=== PATIENT | female | born 1945 | race Caucasian/White ===

== ENCOUNTER 2023-06-13 08:34 | Emergency (ER) | payer MEDICARE, SELFPAY ==
[2023-06-13 08:38] VITALS: BP 174/83
--- NOTE | 2023-06-13 09:30 | ED.GENMED ---
History of Present Illness
General
Chief Complaint: Abdominal Symptoms
Source: patient and records
Exam Limitations: none
Time Seen by Provider: 06/13/23 09:04
Travel History
Have you had any contact with someone who has COVID-19?: No
Do you have any symptoms of coronavirus? Fever > 100 degrees, chills, cough, shortness of breath, sore throat, loss of taste or smell, muscle aches, or headache?: No
History of Present Illness
History of Present Illness:
Patient is a very pleasant 78-year-old female send diverticulitis status postresection at [facility] for sigmoid postoperatively had some pains and anemia ultimately diagnosed with multiple myeloma she has been on Revlimid and
infusions the [facility] about a month ago had a GI illness, diagnosed with enteritis treated with Bentyl past few days has had some abdominal cramping and loose stool concern for diverticulitis no recent antibiotic use, also just
finished some antivirals for genital herpes which is a new issue for her
Past History
Past History
ED Past Medical History: Other (Diverticulitis, IBS) and Other (Multiple myeloma)
ED Past Surgical History: Bowel resection (Sigmoid resection), Orthopedic and Other
Patient has exhibited threatening behavior?: No
Social History
Tobacco: Non-smoker
Alcohol: Occasional
Drug: None
Personal:
Living: alone
Employment: Retired
Family History
Family History: Other (Mother with coronary artery disease sister with breast cancer)
Review of Systems
Review of Systems
All Other Systems: Not applicable
Constitutional: Denies fever, fatigue or chills
Respiratory: Reports no symptoms
Cardiac: Reports no symptoms
ABD/GI: Reports abdominal pain and diarrhea
Musculoskeletal: Reports no symptoms
Skin: Reports no symptoms
Neurological: Reports no symptoms
Hematologic/Lymphatic: Reports no symptoms
Psychiatric: Reports no symptoms
Phy Exam
Physical Exam
Physical Exam:
Physical Exam
General: no apparent distress, not acutely ill
Neck: No jaundice
Heart: s1/s2 regular rate and rhythm, no murmur. equal radial pulses.
Lungs: no acute respiratory distress. clear bilaterally
Abdomen: Soft mild diffuse tenderness distended
Neuro: alert and oriented. no focal neurological deficits
Skin: no rash
Psychiatric: well kept. interactive and cooperative
Extremities: no edema.
Course
Orders/Labs/Results
Orders:
Orders
06/13/23 09:28
CT Abd/pel W Iv And Oral Contr Urgent
Comment:
Reason For Exam: pain diraha
Iohexol [Omnipaque] See Protocol PO NOW STA
06/13/23 09:38
Complete Blood Count/With Diff Urgent
Comprehensive Metabolic Panel Urgent
Lipase Urgent
06/13/23 12:09
CDIFF [C difficile Antigen & Toxins] Urgent
MARLENY Source: Feces/Stool
Specimen Description:
Date Specimen was Collected: 06/13/23
Time Specimen was Collected: 12:03
Stool Culture Urgent
MARLENY Source: Feces/Stool
Specimen Description:
Date Specimen was Collected: 06/13/23
Time Specimen was Collected: 12:03
Abnormal Lab Results
06/13/23
09:38
WBC 4.5 L 10^3/uL
(4.8-10.8)
RBC 3.65 L 10^6/uL
(4.20-5.40)
Hct 35.8 L %
(37.0-47.0)
MCH 34.0 H pg
(27.0-31.0)
RDW 15.0 H %
(11.5-14.5)
Monocytes % 9.7 H %
(1.7-9.3)
AST 37 H U/L
(14-36)
06/13/23 09:38
06/13/23 09:38
Vital Signs
Initial and Last Documented VS:
Initial Vital Signs
Temp Pulse Resp BP Pulse Ox
98.1 F 57 16 174/83 99
06/13/23 08:38 06/13/23 08:38 06/13/23 08:38 06/13/23 08:38 06/13/23 08:38
Last Documented Vital Signs
Temp Pulse Resp BP Pulse Ox
98.1 F 57 16 174/83 99
06/13/23 08:38 06/13/23 08:38 06/13/23 08:38 06/13/23 08:38 06/13/23 08:38
MDM/Problems Addressed
Differential Diagnosis Includes:
Colitis diverticulitis infectious diarrhea enteritis medication effect
MDM/Problems Addressed:
Cramping loose stool
Chronic conditions affecting care:
Diverticulitis myeloma
Acute Exacerbation and/or Progression of Chronic Illness:
Diverticulitis myeloma
*Radiology
Radiology exam reviewed: preliminary read by ED provider
*Pulse Oximetry
Patient hypoxic: no
*Critical Care Note
Total Time (30-74mins, 75-104mins- exclusive of procedures): Not Applicable
Data Reviewed
Review of Other/Old Records Reveals: Labs and Discharge Summary
Source: patient, records and previous radiology exam
Update Note
Update Note:
Update 1:40 PM labs CAT scan unremarkable unable to stool sample
ED Attending Note
-
Portions of this chart may have been created with voice recognition software.� Occasional wrong word or��sound alike� substitutions may have occurred due to the inherent limitations of voice recognition software.
Discharge Plan
Departure
Patient Disposition: Home (Routine Discharge)
Date of Disposition: 06/13/23
Time of Disposition: 13:44
Patient with high blood pressure during this ER visit?: No
Condition: Good
Discharge Problem:
Abdominal pain
Instructions: Diarrhea in adolescents and adults, Abdominal Pain
Prescriptions:
New
dicyclomine 20 mg tablet
20 mg PO QID PRN (Reason: abdominal pain) Qty: 20 2RF
No Action
Refresh Classic (PF) 10 DROPS dropperette
1 drops BOTH EYES DAILYPRN PRN (Reason: dry eyes)
famotidine 40 MG tablet
40 mg PO DAILY
lenalidomide [Revlimid] 15 MG capsule
15 mg PO DAILY
Patient Comments:
09/09/21- Takes 15mg daily for 2 weeks, and then off for 1 week
oxycodone 10 MG tablet
10 mg PO BIDPRN PRN (Reason: severe pain)
Patient Comments:
09/09/21: last filled 07/16/21 #60 for 30 days
milk thistle 500 MG capsule
500 mg PO DAILY
aspirin 81 MG tablet,delayed release (DR/EC)
81 mg PO DAILY
acetaminophen [Tylenol Extra Strength] 500 MG tablet
1,000 mg PO BIDPRN PRN (Reason: mild pain)
calcium carbonate [Oyster Shell Calcium 500] 500 MG tablet
1,500 mg PO DAILY
ascorbic acid (vitamin C) [Vitamin C] 500 MG tablet
1,000 mg PO DAILY
gabapentin 300 MG capsule
400 mg PO HS
cranberry 1,000 MG capsule
1,000 mg PO DAILY
cholecalciferol (vitamin D3) 1,000 UNITS tablet
5,000 units PO DAILY
multivitamin with folic acid [Tab-A-Jacquie] 1 TABLET tablet
1 tab PO DAILY
[place] 3-6-9 1,200 MG capsule
1,200 mg PO DAILY
alprazolam 0.25 MG tablet
0.25 mg PO DAILYPRN PRN (Reason: anxiety)
Patient Comments:
09/09/21: last filled 06/19/21, 15 tabs for 15 days from [facility]
buprenorphine [Butrans] 15 MCG/HR patch weekly
1 patch topical Q7D
Patient Comments:
09/09/21-patient has patch on right arm for back pain
polyethylene glycol 3350 17 GRAMS powder in packet
17 grams PO DAILYPRN PRN (Reason: constipation)
hydralazine 25 mg tablet
12.5 mg PO TID Qty: 90 0RF
dicyclomine 10 mg capsule
10 - 20 mg PO TID PRN (Reason: abdominal pain) Qty: 20 0RF
Referrals:
Yojana Doty MD [Family Provider] - Next open appointment
Activity Restrictions/Additional Instructions:
Drink plenty of fluids, you can use Bentyl 3-4 times a day for abdominal cramping
Interventions
Interventions:
*Risk Screen - Suicide Last Done: 06/13/23 08:38
*General Assessment Last Done: 06/13/23 08:38
*Neglect/Abuse Screening Last Done: 06/13/23 08:38
[2023-06-13] MEDS: OMNIPAQUE 50 ML PO (09:55)
[2023-06-13 09:56] LABS: % Basophils 1.5 % (0-2); % Eosinophils 2.2 % (0-6); % Immature Granulocytes 0.2 % (0-0.5); % Lymphocytes 25.8 % (20.5-51.1); % Monocytes 9.7 % (1.7-9.3); % Neutrophils 60.6 % (42.2-75.2); Absolute Basophils 0.1 10^3/uL (0-0.2); Absolute Eosinophils 0.1 10^3/uL (0-0.7); Absolute Lymphocytes 1.2 10^3/uL (1.2-3.4); Absolute Monocytes 0.4 10^3/uL (0.1-0.6); Absolute Neutrophils 2.7 10^3/uL (1.4-6.5); Hematocrit 35.8 % (37.0-47.0); Hemoglobin 12.4 g/dL (12.0-16.0); Mean Corp Hgb Conc. 34.6 g/dL (33.0-37.0); Mean Corpuscular Volume 98.1 fL (81.0-99.0); Mean Platelet Volume 10.4 fL (7.4-10.4); Nucleated Red Blood Cells % 0 %; Platelet Count 277 10^3/uL (130-400); Red Blood Cell Count 3.65 10^6/uL (4.20-5.40); White Blood Cell Count 4.5 10^3/uL (4.8-10.8)
[2023-06-13 10:11] LABS: ALT (SGPT) 26 U/L (0-35); AST (SGOT) 37 U/L (14-36); Albumin 4.5 g/dl (3.5-5.0); Alkaline Phosphatase 85 U/L (38-126); Blood Urea Nitrogen 17 mg/dl (7-17); Calcium 9.7 mg/dl (8.4-10.2); Carbon Dioxide 30 mmol/L (22-30); Chloride 105 mmol/L (98-107); Glucose 79 mg/dl (70-99); Lipase 118 U/L (23-300); Potassium 4.1 mmol/L (3.5-5.1); Sodium 138 mmol/L (135-145); Total Bilirubin 0.9 mg/dl (0.2-1.3); Total Protein 7.6 g/dl (6.3-8.2); eGFR > 60.00
--- NOTE | 2023-06-13 11:24 | CON.GI ---
Addendum entered and electronically signed by Sharona Haque MD 06/13/23 12:02:
I saw and examined the patient.
The CUSHION WORKER's note was reviewed and I agree with the note.
Comment: This is a 78-year-old female who has a history of recurrent diverticulitis requiring sigmoidectomy in 2019 at [facility] with complicated postop course with ileus and bleeding and required prolonged hospitalization with TPN. She was subsequently
diagnosed with multiple myeloma had undergone treatment for this with Dr. Haddad and Dr. Gunn and she is been off the Revlimid since August 2022. She has been having chronic intermittent episodes of lower abdominal discomfort associated with
urgency to have a bowel movement on and off for the past couple of months. She was in the emergency room on the was diagnosed with probable enteritis and was also prescribed Bentyl she took it for a few days but has not recently been using it,
it did help her in the past. She takes MiraLAX as needed when she is constipated. Recently she has been taking Pepto-Bismol for the frequent stools. No rectal bleeding no fevers or chills. She also has a history of recurrent partial small bowel
obstructions in the past which resolved with conservative treatment and did not require repeat surgery. She had not really tolerated fiber in the past.
Assessment and plan symptoms of lower abdominal cramps with urgency and frequent stool most likely related to probable IBS and diverticular associated spasm there was no evidence of anastomotic stricture noted on colonoscopy in 2021 the colorectal
anastomosis seemed normal and random colon biopsies at that time were negative for microscopic colitis also. She is scheduled for repeat CT today if that is negative for bowel obstruction or acute diverticulitis she is okay to DC home with
symptomatic treatment with Bentyl and IBgard and low FODMAP diet and follow-up with Dr. Quiñones as outpatient.
Original Note:
Documented by User: Josey Bello PA-C 06/13/23 11:48
Consultation
-
Date/Time Consultation Requested: 06/13/23
Date/Time Consultation Performed: 06/13/23 1115
Performing Provider: Josey Benitez-C
Reason for Consultation: urgency, h/o partial bowel obstructions
Medical History
Chief Complaint / HPI
Chief Complaint: urgency, loose bowel movements
History of Present Illness:
Julia is a 78 year old female with a past medical history of partial bowel obstructions, recurrent complicated diverticulitis (s/p sigmoid colectomy 02/2020 at [facility]), multiple myeloma, chronic back pain who presents to the ER after calling the
GI office yesterday afternoon for abdominal cramping/urgency and loose stools for the past few days. No associated fever, chills, nausea or vomiting. No melena or hematochezia. She currently denies abdominal pain and states her symptoms do not feel
like when she had the prior obstructions. She is passing loose brown stools multiple times daily with urgency. She took Pepto-Bismol with some relief. She takes Miralax on an as needed basis, but generally states her bowel movements are regular. She
was in the ER 05/26/23 with similar symptoms (but at that time was vomiting and had low grade fever), had a CT scan which showed enteritis/ileus. She states these symptoms resolved on their own and she had a recent follow-up office visit with "Alfonso"Nuria on 06/10/23. Her last colonoscopy in 2021 showed no colonic diverticulosis, and s/p ileocolonic anastamosis. Colon biopsies were negative for microscopic colitis. ER labs showing no leukocytosis. CT abdomen/pelvis is still pending.
Past Medical History
Past Medical History: GERD and Other (multiple myeloma (previously on revlimid, off since 08/2022), diverticulitis s/p sigmoid colectomy 2019 at [facility], partial small bowel obstructions, chronic back pain)
Past Surgical History: Other (see above )
Social History
Tobacco: Non-Smoker
Alcohol: Occasional
Drug: None
Personal:
Living: Alone
Employment: Retired
Family History
Family History: Other (No family history of GI malignancies)
Allergies / Home Medications
Allergy/AdvReac Type Severity Reaction Status Date / Time
adhesive Allergy Bandaid - Verified 06/13/23 08:36
local
reaction
asparagus Allergy Asthma Verified 06/13/23 08:36
symptoms
benzoyl peroxide Allergy Puffs up, Verified 06/13/23 08:36
itchy, red
- topical
for acne
cat dander Allergy 'Very Verified 06/13/23 08:36
allergic'
cat pelt standardized Allergy Asthma Verified 06/13/23 08:36
allergenic ex
latex [Latex] Allergy Rash Verified 06/13/23 08:36
melon Allergy Honeydew - Verified 06/13/23 08:36
asthma
mold Allergy Shortness Verified 06/13/23 08:36
of Breath
piperacillin [From Zosyn] Allergy Developed Verified 06/13/23 08:36
Sensitivity
pollen extracts Allergy Asthma, Verified 06/13/23 08:36
gets sick
sulfamethoxazole Allergy Anaphylaxis Verified 06/13/23 08:36
[From Bactrim]
tazobactam [From Zosyn] Allergy Developed Verified 06/13/23 08:36
Sensitivity
trimethoprim [From Bactrim] Allergy Anaphylaxis Verified 06/13/23 08:36
prednisone AdvReac Worsened Verified 06/13/23 08:36
Lymes
Disease
symptoms
chemicals Allergy asthma Uncoded 06/13/23 08:36
Medication Instructions Recorded
polyvinyl alcohol-povidone (PF) 1 drops BOTH EYES DAILYPRN PRN dry 07/19/19
1.4 %-0.6 % eye drops in a eyes
dropperette (Refresh Classic (PF))
famotidine 40 mg tablet 40 mg PO DAILY Gastrointestinal 10/23/20
issue
lenalidomide 15 mg capsule 15 mg PO DAILY Cancer 10/23/20
(Revlimid)
oxycodone 10 mg tablet 10 mg PO BIDPRN PRN severe pain 10/23/20
acetaminophen 500 mg tablet 1,000 mg PO BIDPRN PRN mild pain 01/22/21
(Tylenol Extra Strength)
alprazolam 0.25 mg tablet 0.25 mg PO DAILYPRN PRN anxiety 01/22/21
ascorbic acid (vitamin C) 500 mg 1,000 mg PO DAILY Supplement 01/22/21
tablet (Vitamin C)
aspirin 81 mg tablet,delayed 81 mg PO DAILY Blood clot 01/22/21
release prevention/tx
calcium carbonate 500 mg calcium 1,500 mg PO DAILY Supplement 01/22/21
(1,250 mg) tablet (Oyster Shell
Calcium 500)
cholecalciferol (vitamin D3) 25 5,000 units PO DAILY Supplement 01/22/21
mcg (1,000 unit) tablet
cranberry 1,000 mg capsule 1,000 mg PO DAILY Supplement 01/22/21
fish, borage, flaxseed oils-omega 1,200 mg PO DAILY Supplement 01/22/21
3,6,9 comb no.1 1,200 mg capsule
([place] 3-6-9)
gabapentin 300 mg capsule 400 mg PO HS Pain 01/22/21
milk thistle 500 mg capsule 500 mg PO DAILY Supplement 01/22/21
multivitamin with folic acid 400 1 tab PO DAILY Supplement 01/22/21
mcg tablet (Tab-A-Jacquie)
buprenorphine 15 mcg/hour weekly 1 patch topical Q7D 09/09/21
transdermal patch (Butrans)
polyethylene glycol 3350 17 gram 17 grams PO DAILYPRN PRN 09/09/21
oral powder packet constipation
hydralazine 25 mg tablet 12.5 mg PO TID #90 tabs 12/18/22
dicyclomine 10 mg capsule 10 - 20 mg PO TID PRN abdominal 05/26/23
pain #20 caps
Review of Systems
-
History Source: Patient
All other systems: A 12 pt ROS was Negative except as stated above in HPI
Vital Signs
Temp Pulse Resp BP Pulse Ox
98.1 F 57 16 174/83 99
06/13/23 08:38 06/13/23 08:38 06/13/23 08:38 06/13/23 08:38 06/13/23 08:38
Physical Exam
Exam
General: Well Developed, Well Nourished and No Apparent Distress
Respiratory: Clear
Cardiac: Regular Rhythm
GI: Soft, Non Distended, Normal Bowel Sounds and Tender (+mild tenderness LLQ)
Skin: Warm and Dry
Neuro: AO x 3
Psych: Calm
Results
WBC 4.5 10^3/uL (4.8-10.8) L 06/13/23 09:38
Hgb 12.4 g/dL (12.0-16.0) 06/13/23 09:38
Hct 35.8 % (37.0-47.0) L 06/13/23 09:38
MCV 98.1 fL (81.0-99.0) 06/13/23 09:38
Plt Count 277 10^3/uL (130-400) 06/13/23 09:38
Absolute Neuts (auto) 2.7 10^3/uL (1.4-6.5) 06/13/23 09:38
Sodium 138 mmol/L (135-145) 06/13/23 09:38
Potassium 4.1 mmol/L (3.5-5.1) 06/13/23 09:38
Chloride 105 mmol/L (98-107) 06/13/23 09:38
Carbon Dioxide 30 mmol/L (22-30) 06/13/23 09:38
BUN 17 mg/dl (7-17) 06/13/23 09:38
Creatinine 0.8 mg/dL (0.6-1.0) 06/13/23 09:38
Calcium 9.7 mg/dl (8.4-10.2) 06/13/23 09:38
Total Bilirubin 0.9 mg/dl (0.2-1.3) 06/13/23 09:38
AST 37 U/L (14-36) H 06/13/23 09:38
ALT 26 U/L (0-35) 06/13/23 09:38
Alkaline Phosphatase 85 U/L (38-126) 06/13/23 09:38
Lipase 118 U/L (23-300) 06/13/23 09:38
Diagnostic Image Results:
CT abdomen/pelvis pending
Prior GI Procedures:
EGD:
Colonoscopy:
06/04/2021, Dr. Quiñones
�� � No evidence of colitis. Anastomosis seen at 15cm. No diverticula or
�� � polyps seen. Fair prep. Biopsies for histology were taken with a cold
�� � forceps from the entire colon for evaluation of microscopic colitis.
�� � � � � � � � � � � � � � � � � � � � � � � � � � � � � � � � � � � � � � �
Impression:� � � � � � - No evidence of colitis or polyps.
�� � � � � � � � � � � - Anastomosis at 15 cm.
�� � � � � � � � � � � - Preparation of the colon was fair with areas of good.
Assessment / Plan
-
Julia is a 78 year old female with a past medical history of partial bowel obstructions, recurrent complicated diverticulitis (s/p sigmoid colectomy 02/2020 at [facility]), multiple myeloma, chronic back pain who presents to the ER after calling the
GI office yesterday afternoon for abdominal cramping/urgency and loose stools for the past few days. No associated fever, chills, nausea or vomiting. No melena or hematochezia. She currently denies abdominal pain and states her symptoms do not feel
like when she had the prior obstructions. She is passing loose brown stools multiple times daily with urgency. She took Pepto-Bismol with some relief. She takes Miralax on an as needed basis, but generally states her bowel movements are regular. She
was in the ER 05/26/23 with similar symptoms (but at that time was vomiting and had low grade fever), had a CT scan which showed enteritis/ileus. She states these symptoms resolved on their own and she had a recent follow-up office visit with "Alfonso"Nuria on 06/10/23. Her last colonoscopy in 2021 showed no colonic diverticulosis, and s/p ileocolonic anastamosis. Colon biopsies were negative for microscopic colitis. ER labs showing no leukocytosis. CT abdomen/pelvis is still pending.
IMPRESSION / PLAN:
Abdominal Cramping/Urgency with loose bowel movements, likely IBS
-h/o recurrent diverticulitis s/p sigmoid colectomy in 2019
-h/o partial small bowel obstructions
-await CT results
-clinically pt does not present as an obstruction and suspect her symptoms are related to underlying irritable bowel syndrome
-if CT neg, would recommend dicyclomine and/or IB Daniel as needed
-outpatient GI followup with Dr. Quiñones
-
-
Thank you for consultation and allowing me to participate in the patient's care. Please call the front end software engineer GI physician during the after hours with any questions or concerns.

Documented by User: Sharona Haque MD 06/13/23 11:55
Medical History
Chief Complaint / HPI
History of Present Illness:
Julia is a 78 year old female with a past medical history of partial bowel obstructions, recurrent complicated diverticulitis (s/p sigmoid colectomy 02/2020 at [facility]), multiple myeloma, chronic back pain who presents to the ER after calling the
GI office yesterday afternoon for abdominal cramping/urgency and loose stools for the past few days. No associated fever, chills, nausea or vomiting. No melena or hematochezia. She currently denies abdominal pain and states her symptoms do not feel
like when she had the prior obstructions. She is passing loose brown stools multiple times daily with urgency. She took Pepto-Bismol with some relief. She takes Miralax on an as needed basis, but generally states her bowel movements are regular. She
was in the ER 05/26/23 with similar symptoms (but at that time was vomiting and had low grade fever), had a CT scan which showed enteritis/ileus. She states these symptoms resolved on their own and she had a recent follow-up office visit with Dr. Nuria (~) on 06/10/23. Her last colonoscopy in 2021 showed no colonic diverticulosis, and s/p colorectal anastamosis. Colon biopsies were negative for microscopic colitis. ER labs showing no leukocytosis. CT abdomen/pelvis is still pending.
Assessment / Plan
-
Julia is a 78 year old female with a past medical history of partial bowel obstructions, recurrent complicated diverticulitis (s/p sigmoid colectomy 02/2020 at [facility]), multiple myeloma, chronic back pain who presents to the ER after calling the
GI office yesterday afternoon for abdominal cramping/urgency and loose stools for the past few days. No associated fever, chills, nausea or vomiting. No melena or hematochezia. She currently denies abdominal pain and states her symptoms do not feel
like when she had the prior obstructions. She is passing loose brown stools multiple times daily with urgency. She took Pepto-Bismol with some relief. She takes Miralax on an as needed basis, but generally states her bowel movements are regular. She
was in the ER 05/26/23 with similar symptoms (but at that time was vomiting and had low grade fever), had a CT scan which showed enteritis/ileus. She states these symptoms resolved on their own and she had a recent follow-up office visit with Dr. Nuria (~) on 06/10/23. Her last colonoscopy in 2021 showed no colonic diverticulosis, and s/p colorectal anastamosis. Colon biopsies were negative for microscopic colitis. ER labs showing no leukocytosis. CT abdomen/pelvis is still pending.
IMPRESSION / PLAN:
Abdominal Cramping/Urgency with loose bowel movements, likely IBS
-h/o recurrent diverticulitis s/p sigmoid colectomy in 2019
-h/o partial small bowel obstructions
-await CT results
-clinically pt does not present as an obstruction and suspect her symptoms are related to underlying irritable bowel syndrome
-if CT neg, would recommend dicyclomine and/or IB Daniel as needed
-outpatient GI followup with Dr. Quiñones
== END 2023-06-13 14:10 | disposition home or self-care (01) ==
LOC: EMR 08:34
PROVIDERS: EMERGENCY PHYSICIAN Emergency Medicine; FAMILY PHYSICIAN Family Medicine
DX: R10.9 Unspecified abdominal pain (principal); G89.29 Other chronic pain; K21.9 Gastro-esophageal reflux disease without esophagitis; Z80.3 Family history of malignant neoplasm of breast; Z82.49 Family history of ischemic heart disease and other diseases of the circulatory system; Z83.79 Family history of other diseases of the digestive system; Z90.49 Acquired absence of other specified parts of digestive tract
CPT/HCPCS: 99284; 74177; 80053; 83690; 85025; 87045; 87046; 87324; 87427; 87449; Q9967

== ENCOUNTER → 2023-06-18 12:58 | Outpatient (REF) | payer MEDICARE, SELFPAY ==
[2023-06-18 12:17] LABS: % Basophils 1.4 % (0-2); % Eosinophils 1.9 % (0-6); % Lymphocytes 32.5 % (20.5-51.1); % Monocytes 10.8 % (1.7-9.3); % Neutrophils 53.4 % (42.2-75.2); Absolute Basophils 0.1 10^3/uL (0-0.2); Absolute Eosinophils 0.1 10^3/uL (0-0.7); Absolute Lymphocytes 1.4 10^3/uL (1.2-3.4); Absolute Monocytes 0.5 10^3/uL (0.1-0.6); Absolute Neutrophils 2.3 10^3/uL (1.4-6.5); Hematocrit 38.8 % (37.0-47.0); Mean Corp Hgb Conc. 33.5 g/dL (33.0-37.0); Mean Corpuscular Hgb 33.6 pg (27.0-31.0); Mean Corpuscular Volume 100.3 fL (81.0-99.0); Mean Platelet Volume 10.4 fL (7.4-10.4); Platelet Count 255 10^3/uL (130-400); Red Blood Cell Count 3.87 10^6/uL (4.20-5.40); Red Cell Dist. Width 14.6 % (11.5-14.5); White Blood Cell Count 4.2 10^3/uL (4.8-10.8)
[2023-06-18 13:16] LABS: INR 0.97; PT 12.8 Sec (11.4-14.6)
[2023-06-18 13:33] LABS: ALT (SGPT) 23 U/L (0-35); AST (SGOT) 33 U/L (14-36); Albumin 4.5 g/dl (3.5-5.0); Alkaline Phosphatase 98 U/L (38-126); Blood Urea Nitrogen 14 mg/dl (7-17); Calcium 10.1 mg/dl (8.4-10.2); Carbon Dioxide 31 mmol/L (22-30); Chloride 100 mmol/L (98-107); Glucose 95 mg/dl (70-99); Sodium 136 mmol/L (135-145); Total Bilirubin 0.9 mg/dl (0.2-1.3); Total Protein 7.5 g/dl (6.3-8.2); eGFR > 60.00
[2023-06-18 13:38] LABS: Potassium 4.2 mmol/L (3.5-5.1)
[2023-06-21 09:23] LABS: Beta-2-Microglobulin 1.7 mg/L (<=3.0)
[2023-06-22 23:41] LABS: Albumin 4.31 g/dL (3.75-5.01); Alpha 1 Globulin 0.26 g/dL (0.19-0.46); Alpha 2 Globulin 0.74 g/dL (0.48-1.05); Free Kappa Light Chains,Quant 11.67 mg/L (3.30-19.40); Free Lambda Light Chains,Quant 7.04 mg/L (5.71-26.30); IgA 166 mg/dL (68-408); IgG 1194 mg/dL (768-1632); IgM 116 mg/dL (35-263); Immunofixation Electrophoresis IFE Done; Kappa/Lambda Fr Light Ratio 1.66 (0.26-1.65); Total Protein-Electrophoresis 7.3 g/dL (6.3-8.2)
== END ==
LOC: OIDL 12:58
PROVIDERS: ATTENDING PHYSICIAN Internal Medicine Hematology & Oncology
DX: C90.00 Multiple myeloma not having achieved remission (principal); R58 Hemorrhage, not elsewhere classified
CPT/HCPCS: 80053; 82232; 82784; 83521; 84155; 84165; 85025; 85610; 86334

== ENCOUNTER → 2023-07-16 08:52 | Outpatient (REF) | payer MEDICARE, SELFPAY ==
[2023-07-16 09:12] LABS: % Basophils 1.6 % (0-2); % Eosinophils 4.2 % (0-6); % Lymphocytes 43.9 % (20.5-51.1); % Monocytes 9.9 % (1.7-9.3); % Neutrophils 40.4 % (42.2-75.2); Absolute Basophils 0.1 10^3/uL (0-0.2); Absolute Eosinophils 0.2 10^3/uL (0-0.7); Absolute Lymphocytes 1.9 10^3/uL (1.2-3.4); Absolute Monocytes 0.4 10^3/uL (0.1-0.6); Absolute Neutrophils 1.7 10^3/uL (1.4-6.5); Hematocrit 42.5 % (37.0-47.0); Hemoglobin 14.3 g/dL (12.0-16.0); Mean Corp Hgb Conc. 33.6 g/dL (33.0-37.0); Mean Corpuscular Hgb 33.7 pg (27.0-31.0); Mean Corpuscular Volume 100.2 fL (81.0-99.0); Mean Platelet Volume 10.1 fL (7.4-10.4); Platelet Count 268 10^3/uL (130-400); Red Blood Cell Count 4.24 10^6/uL (4.20-5.40); Red Cell Dist. Width 13.7 % (11.5-14.5); White Blood Cell Count 4.3 10^3/uL (4.8-10.8)
[2023-07-16 10:47] LABS: INR 0.94; PT 12.6 Sec (11.4-14.6)
[2023-07-16 10:48] LABS: APTT 26.1 Sec (23.4-35.0)
[2023-07-16 10:51] LABS: ALT (SGPT) 25 U/L (0-35); AST (SGOT) 30 U/L (14-36); Albumin 4.8 g/dl (3.5-5.0); Alkaline Phosphatase 105 U/L (38-126); Blood Urea Nitrogen 19 mg/dl (7-17); Calcium 9.6 mg/dl (8.4-10.2); Carbon Dioxide 25 mmol/L (22-30); Chloride 105 mmol/L (98-107); Glucose 94 mg/dl (70-99); Potassium 4.1 mmol/L (3.5-5.1); Sodium 137 mmol/L (135-145); Total Bilirubin 0.8 mg/dl (0.2-1.3); Total Protein 7.6 g/dl (6.3-8.2); eGFR > 60.00
[2023-07-18 03:08] LABS: Beta-2-Microglobulin 1.8 mg/L (<=3.0)
[2023-07-20 05:28] LABS: Albumin 4.53 g/dL (3.75-5.01); Alpha 1 Globulin 0.26 g/dL (0.19-0.46); Alpha 2 Globulin 0.72 g/dL (0.48-1.05); Free Kappa Light Chains,Quant 11.42 mg/L (3.30-19.40); Free Lambda Light Chains,Quant 7.35 mg/L (5.71-26.30); IgA 160 mg/dL (68-408); IgG 964 mg/dL (768-1632); IgM 111 mg/dL (35-263); Immunofixation Electrophoresis IFE Done; Kappa/Lambda Fr Light Ratio 1.55 (0.26-1.65); Total Protein-Electrophoresis 7.3 g/dL (6.3-8.2)
== END ==
LOC: OIDL 08:52
PROVIDERS: ATTENDING PHYSICIAN Internal Medicine Hematology & Oncology
DX: C90.00 Multiple myeloma not having achieved remission (principal); Z86.2 Personal history of diseases of the blood and blood-forming organs and certain disorders involving the immune mechanism
CPT/HCPCS: 36415; 80053; 82232; 82784; 83521; 84155; 84165; 85025; 85610; 85730; 86334

== ENCOUNTER 2023-08-03 04:56 | Emergency (ER) | payer MEDICARE, SELFPAY ==
[2023-08-03] VITALS (9 sets, daily range): BP systolic 113–155; BP diastolic 58–92; BMI 23.9
[2023-08-03] MEDS: TORADOL 15 MG IM (05:33)
[2023-08-03 05:35] LABS: % Basophils 0.5 % (0-2); % Eosinophils 0.5 % (0-6); % Immature Granulocytes 0.4 % (0-0.5); % Lymphocytes 8.4 % (20.5-51.1); % Monocytes 7.1 % (1.7-9.3); % Neutrophils 83.1 % (42.2-75.2); Absolute Basophils 0.1 10^3/uL (0-0.2); Absolute Eosinophils 0.1 10^3/uL (0-0.7); Absolute Immature Granulocytes 0.1 10^3/uL (0-0.05); Absolute Lymphocytes 1.1 10^3/uL (1.2-3.4); Absolute Monocytes 0.9 10^3/uL (0.1-0.6); Absolute Neutrophils 10.7 10^3/uL (1.4-6.5); Hematocrit 41.2 % (37.0-47.0); Hemoglobin 14.5 g/dL (12.0-16.0); Mean Corp Hgb Conc. 35.2 g/dL (33.0-37.0); Mean Corpuscular Hgb 32.9 pg (27.0-31.0); Mean Corpuscular Volume 93.4 fL (81.0-99.0); Mean Platelet Volume 10.4 fL (7.4-10.4); Nucleated Red Blood Cells % 0 %; Platelet Count 310 10^3/uL (130-400); Red Blood Cell Count 4.41 10^6/uL (4.20-5.40); Red Cell Dist. Width 13.2 % (11.5-14.5); White Blood Cell Count 12.9 10^3/uL (4.8-10.8)
[2023-08-03 05:53] LABS: ALT (SGPT) 24 U/L (0-35); AST (SGOT) 43 U/L (14-36); Albumin 4.9 g/dl (3.5-5.0); Alkaline Phosphatase 88 U/L (38-126); Blood Urea Nitrogen 19 mg/dl (7-17); Calcium 10.6 mg/dl (8.4-10.2); Carbon Dioxide 26 mmol/L (22-30); Chloride 104 mmol/L (98-107); Estimated Creatinine Clearance 48 ml/min; Glucose 120 mg/dl (70-99); Lipase 121 U/L (23-300); Potassium 4.8 mmol/L (3.5-5.1); Sodium 138 mmol/L (135-145); Total Bilirubin 0.9 mg/dl (0.2-1.3); Total Protein 8.3 g/dl (6.3-8.2); eGFR > 60.00
[2023-08-03 06:00] LABS: Troponin I < 0.012 ng/ml
[2023-08-03] MEDS: DILAUDID 0.5 MG IV (06:10)
--- NOTE | 2023-08-03 06:11 | ED.GENMED ---
History of Present Illness
General
Chief Complaint: Abdominal Pain
Source: patient
Exam Limitations: none
Time Seen by Provider: 08/03/23 05:59
Nursing documentation reviewed up to this point in time: agreed with
Travel History
Have you had any contact with someone who has COVID-19?: No
Do you have any symptoms of coronavirus? Fever > 100 degrees, chills, cough, shortness of breath, sore throat, loss of taste or smell, muscle aches, or headache?: No
History of Present Illness
History of Present Illness:
Patient presents to ED secondary to sudden onset of upper abdominal pain around 10:30 PM last night. Abdominal pain described as sharp, radiating to the sides, without any alleviating or exacerbating factors. Patient has had normal bowel movements
since onset of pain, without improvement symptoms. Denies diarrhea. Denies fever or chills. Denies trauma. Denies difficulty with urination. Patient has has history of bowel obstruction, but states that her symptoms are different. Denies
recent illness. Denies recent travel. Denies sick contact. Denies recent change in medications or diet.
Past History
Past History
ED Past Medical History: Other (Diverticulitis, IBS) and Other (Multiple myeloma)
ED Past Surgical History: Bowel resection (Sigmoid resection), Orthopedic and Other
Patient has exhibited threatening behavior?: No
Social History
Tobacco: Non-smoker
Alcohol: Occasional
Drug: None
Personal:
Living: alone
Employment: Retired
Family History
Family History: Other (Mother with coronary artery disease sister with breast cancer)
Review of Systems
Review of Systems
Allergies reviewed?: Yes
All Other Systems: ROS reviewed and negative except as documented in HPI and ROS
Constitutional: Reports no symptoms; Denies fever
EENT: Reports no symptoms
Respiratory: Reports no symptoms
ABD/GI: Reports abdominal pain, nausea and vomiting; Denies diarrhea
: Reports no symptoms
Musculoskeletal: Reports no symptoms
Skin: Reports no symptoms
Neurological: Reports no symptoms
Phy Exam
Physical Exam
Physical Exam:
Physical Exam
General: mild painful distress, not acutely ill. afebrile
Head: nc/at. eomi
Neck: supple. normal range of motion.
Heart: s1/s2 regular rate and rhythm, no murmur. equal radial pulses.
Lungs: no acute respiratory distress. clear bilaterally
Abdomen: normal bowel sounds. mild epigastric/RUQ tenderness to palpation.
Neuro: alert and oriented. no focal neurological deficits
Skin: no rash
Psychiatric: well kept. interactive and cooperative
Extremities: no edema. no calf tenderness. equal b/l femoral pulses.
Course
Orders/Labs/Results
Orders:
Orders
08/03/23 05:18
Electrocardiogram (*1) Urgent
Reason for Study: Chest Pain
08/03/23 05:19
EKG- Treatment ONCE
08/03/23 05:27
Complete Blood Count/With Diff Urgent
Comprehensive Metabolic Panel Urgent
Lipase Urgent
Troponin I Urgent
08/03/23 05:30
Ketorolac [Toradol] 15 mg .ROUTE .STK-MED ONE
Ondansetron Injectable [Zofran] 4 mg .ROUTE .STK-MED ONE
08/03/23 05:32
Ketorolac [Toradol] 15 mg IM NOW STA
08/03/23 06:08
HYDROmorphone [Dilaudid] 0.5 mg IV NOW STA
US Abdomen Complete/Upper Urgent
Comment:
Reason For Exam: RUQ/epigastric pain
08/03/23 06:09
Ondansetron Injectable [Zofran] 4 mg .ROUTE .STK-MED ONE
08/03/23 06:10
0.9% Sodium Chloride 500 ml [Nss] 500 ml IV BOLUS
08/03/23 06:12
Ondansetron Injectable [Zofran] 4 mg IV NOW STA
08/03/23 07:42
CR Obstruct Series W/pa Chest Urgent
Comment:
Reason For Exam: abd pain w vomiting
08/03/23 08:37
CT Abd/pel W Iv And Oral Contr Urgent
Comment:
Reason For Exam: abdominal pain
Iohexol [Omnipaque] See Protocol PO NOW STA
Abnormal Lab Results
08/03/23
05:27
WBC 12.9 H 10^3/uL
(4.8-10.8)
MCH 32.9 H pg
(27.0-31.0)
Abs Immat Gran (auto) 0.1 H 10^3/uL
(0-0.05)
Absolute Neuts (auto) 10.7 H 10^3/uL
(1.4-6.5)
Absolute Lymphs (auto) 1.1 L 10^3/uL
(1.2-3.4)
Absolute Monos (auto) 0.9 H 10^3/uL
(0.1-0.6)
Neutrophils % 83.1 H %
(42.2-75.2)
Lymphocytes % 8.4 L %
(20.5-51.1)
BUN 19 H mg/dl
(7-17)
Glucose 120 H mg/dl
(70-99)
Calcium 10.6 H mg/dl
(8.4-10.2)
AST 43 H U/L
(14-36)
Total Protein 8.3 H g/dl
(6.3-8.2)
08/03/23 05:27
08/03/23 05:27
Vital Signs
Initial and Last Documented VS:
Initial Vital Signs
Temp Pulse Resp BP Pulse Ox
97.3 F 74 24 150/84 100
08/03/23 04:57 08/03/23 04:57 08/03/23 04:57 08/03/23 04:57 08/03/23 04:57
Last Documented Vital Signs
Temp Pulse Resp BP Pulse Ox
98.5 F 86 20 135/71 99
08/03/23 12:30 08/03/23 12:30 08/03/23 12:30 08/03/23 12:30 08/03/23 12:30
MDM/Problems Addressed
MDM/Problems Addressed:
Upon further questioning, patient states that she had similar episode in May 2023, which resolved spontaneously. Patient states that today symptoms are more intense.
Patient with an unremarkable workup in ED, including blood work and multiple imaging studies. Otherwise, patient remains afebrile, hemodynamically stable, without any acute distress. Patient with nonspecific abdominal complaint, with CT scan
suggestive of possible enteritis. As such, patient will be discharged home in stable condition, with recommendation to follow-up with her GI physician for an outpatient consultation. Advised to return to ED with worsening symptoms, i.e.
fever/worsening pain/vomiting.
*EKG
Interpreted by ED Provider?: Yes
EKG Intrepretation Date: 08/03/23
Heart Rate: 62
Rate: normal
Rhythm: sinus
[place]: normal axis
*Critical Care Note
Total Time (30-74mins, 75-104mins- exclusive of procedures): Not Applicable
ED Attending Note
-
Portions of this chart may have been created with voice recognition software.� Occasional wrong word or��sound alike� substitutions may have occurred due to the inherent limitations of voice recognition software.
Discharge Plan
Departure
Patient Disposition: Home (Routine Discharge)
Date of Disposition: 08/03/23
Time of Disposition: 12:17
Patient with high blood pressure during this ER visit?: Yes
Condition: Good
Discharge Problem:
Abdominal pain
Instructions: Abdominal Pain
Prescriptions:
No Action
Refresh Classic (PF) 10 DROPS dropperette
1 drops BOTH EYES DAILYPRN PRN (Reason: dry eyes)
famotidine 40 MG tablet
40 mg PO DAILY
milk thistle 500 MG capsule
500 mg PO DAILY
aspirin 81 MG tablet,delayed release (DR/EC)
81 mg PO DAILY
acetaminophen [Tylenol Extra Strength] 500 MG tablet
1,000 mg PO BIDPRN PRN (Reason: mild pain)
calcium carbonate [Oyster Shell Calcium 500] 500 MG tablet
1,500 mg PO DAILY
ascorbic acid (vitamin C) [Vitamin C] 500 MG tablet
1,000 mg PO DAILY
gabapentin 300 MG capsule
400 mg PO HS
cranberry 1,000 MG capsule
1,000 mg PO DAILY
cholecalciferol (vitamin D3) 1,000 UNITS tablet
5,000 units PO DAILY
multivitamin with folic acid [Tab-A-Jacquie] 1 TABLET tablet
1 tab PO DAILY
Valatie 3-6-9 1,200 MG capsule
1,200 mg PO DAILY
alprazolam 0.25 MG tablet
0.25 mg PO DAILYPRN PRN (Reason: anxiety)
Patient Comments:
09/09/21: last filled 06/19/21, 15 tabs for 15 days from [facility]
buprenorphine [Butrans] 15 MCG/HR patch weekly
1 patch topical Q7D
Patient Comments:
09/09/21-patient has patch on right arm for back pain
polyethylene glycol 3350 17 GRAMS powder in packet
17 grams PO DAILYPRN PRN (Reason: constipation)
hydralazine 25 mg tablet
12.5 mg PO TID Qty: 90 0RF
dicyclomine 10 mg capsule
10 - 20 mg PO TID PRN (Reason: abdominal pain) Qty: 20 0RF
dicyclomine 20 mg tablet
20 mg PO QID PRN (Reason: abdominal pain) Qty: 20 2RF
loperamide [Imodium A-D] 2 mg capsule
2 mg PO Q6H PRN (Reason: loose stool) Qty: 20 2RF
Referrals:
Chalino Garnica Jr., DO [Family Provider] -
Activity Restrictions/Additional Instructions:
As discussed, please follow-up with your primary care physician and/or GI physician for further evaluation and treatment.
Interventions
Interventions:
*Risk Screen - Suicide Last Done: 08/03/23 04:57
*General Assessment Last Done: 08/03/23 05:11
*Neglect/Abuse Screening Last Done: 08/03/23 04:57
ED- Fall Risk Assessment Last Done: 08/03/23 05:11
*ED COVID-19 Vaccine History Last Done: 08/03/23 05:11
*Nursing Disposition Last Done: 08/03/23 12:30
SO-[id number]-[id number] Assessment Last Done: 08/03/23 07:18
Discharge Date and Time
Discharge Date/Time: 08/03/23 12:30
[2023-08-03] MEDS: ZOFRAN 4 MG IV (06:12)
[2023-08-03] MEDS: NSS 500 IV (06:14)
[2023-08-03] MEDS: OMNIPAQUE 50 ML PO (08:51)
--- NOTE | 2023-08-03 09:49 | EDRN ---
the pt pressed the call mitchell and this RN entered the pts room, the pt stated to this RN, 'The doctor told me to let you guys know if i was having stomach pain with drinking the oral contrast and my stomach is cramping', this RN notified Dr. Sue and
this RN was instructed to have the pt stop drinking oral contrast, the pt has ingested 1.5 cups of oral contrast and this RN notified the provider, will continue to monitor the pt closely
== END 2023-08-03 12:30 | disposition home or self-care (01) ==
LOC: EMR 04:56
PROVIDERS: Emergency Medicine; EMERGENCY PHYSICIAN Emergency Medicine; FAMILY PHYSICIAN Family Medicine
DX: R10.10 Upper abdominal pain, unspecified (principal); R03.0 Elevated blood-pressure reading, without diagnosis of hypertension
CPT/HCPCS: 99285; 96374; 96375; 96361; 96372; 74022; 74177; 76700; 80053; 83690; 84484; 85025; 93005; Q9967

== ENCOUNTER → 2023-08-18 14:29 | Outpatient (REF) | payer MEDICARE, SELFPAY ==
[2023-08-18 14:46] LABS: % Basophils 0.8 % (0-2); % Eosinophils 1.7 % (0-6); % Lymphocytes 26.8 % (20.5-51.1); % Monocytes 7.8 % (1.7-9.3); % Neutrophils 62.9 % (42.2-75.2); Absolute Basophils 0.1 10^3/uL (0-0.2); Absolute Eosinophils 0.1 10^3/uL (0-0.7); Absolute Lymphocytes 1.7 10^3/uL (1.2-3.4); Absolute Monocytes 0.5 10^3/uL (0.1-0.6); Hematocrit 39.8 % (37.0-47.0); Hemoglobin 13.5 g/dL (12.0-16.0); Mean Corp Hgb Conc. 33.9 g/dL (33.0-37.0); Mean Corpuscular Hgb 32.4 pg (27.0-31.0); Mean Corpuscular Volume 95.4 fL (81.0-99.0); Mean Platelet Volume 9.9 fL (7.4-10.4); Platelet Count 306 10^3/uL (130-400); Red Blood Cell Count 4.17 10^6/uL (4.20-5.40); Red Cell Dist. Width 12.9 % (11.5-14.5); White Blood Cell Count 6.4 10^3/uL (4.8-10.8)
[2023-08-18 15:43] LABS: INR 0.96; PT 12.8 Sec (11.4-14.6)
[2023-08-18 15:44] LABS: ALT (SGPT) 29 U/L (0-35); AST (SGOT) 33 U/L (14-36); Albumin 4.8 g/dl (3.5-5.0); Alkaline Phosphatase 89 U/L (38-126); Blood Urea Nitrogen 12 mg/dl (7-17); Calcium 10.3 mg/dl (8.4-10.2); Carbon Dioxide 24 mmol/L (22-30); Chloride 105 mmol/L (98-107); Glucose 88 mg/dl (70-99); Potassium 4.2 mmol/L (3.5-5.1); Sodium 136 mmol/L (135-145); Total Bilirubin 0.8 mg/dl (0.2-1.3); Total Protein 7.8 g/dl (6.3-8.2); eGFR > 60.00
[2023-08-21 20:31] LABS: Beta-2-Glycoprotein I Ab. IgG <10 SGU (<=20); Beta-2-Glycoprotein I Ab. IgM <10 SMU (<=20)
[2023-08-21 23:19] LABS: Albumin 4.65 g/dL (3.75-5.01); Alpha 1 Globulin 0.28 g/dL (0.19-0.46); Alpha 2 Globulin 0.74 g/dL (0.48-1.05); Free Kappa Light Chains,Quant 10.76 mg/L (3.30-19.40); Free Lambda Light Chains,Quant 6.23 mg/L (5.71-26.30); IgA 154 mg/dL (68-408); IgG 1135 mg/dL (768-1632); IgM 120 mg/dL (35-263); Immunofixation Electrophoresis IFE Done; Kappa/Lambda Fr Light Ratio 1.73 (0.26-1.65); Total Protein-Electrophoresis 7.6 g/dL (6.3-8.2)
== END ==
LOC: OIDL 14:29
PROVIDERS: ATTENDING PHYSICIAN Internal Medicine Hematology & Oncology
DX: D80.1 Nonfamilial hypogammaglobulinemia (principal); C90.01 Multiple myeloma in remission; R79.9 Abnormal finding of blood chemistry, unspecified; Z86.2 Personal history of diseases of the blood and blood-forming organs and certain disorders involving the immune mechanism
CPT/HCPCS: 36415; 80053; 82784; 83521; 84155; 84165; 85025; 85610; 85730; 86146; 86334

== ENCOUNTER → 2023-09-09 06:13 | Day surgery (SDC) | payer MEDICARE, SELFPAY | LOC: GI 06:13 | PROVIDERS: ATTENDING PHYSICIAN Internal Medicine | DX: R10.84 Generalized abdominal pain (principal); K29.50 Unspecified chronic gastritis without bleeding; D17.5 Benign lipomatous neoplasm of intra-abdominal organs | CPT/HCPCS: 43239; 88305; 88342 ==

== ENCOUNTER → 2023-09-16 11:06 | Outpatient (REF) | payer MEDICARE, SELFPAY ==
[2023-09-16 11:19] LABS: % Basophils 1.1 % (0-2); % Immature Granulocytes 0.2 % (0-0.5); % Lymphocytes 30.1 % (20.5-51.1); % Monocytes 9.5 % (1.7-9.3); % Neutrophils 56.1 % (42.2-75.2); Absolute Basophils 0.1 10^3/uL (0-0.2); Absolute Eosinophils 0.1 10^3/uL (0-0.7); Absolute Lymphocytes 1.4 10^3/uL (1.2-3.4); Absolute Monocytes 0.5 10^3/uL (0.1-0.6); Absolute Neutrophils 2.7 10^3/uL (1.4-6.5); Hematocrit 38.4 % (37.0-47.0); Hemoglobin 13.1 g/dL (12.0-16.0); Mean Corp Hgb Conc. 34.1 g/dL (33.0-37.0); Mean Corpuscular Hgb 32.8 pg (27.0-31.0); Mean Corpuscular Volume 96.2 fL (81.0-99.0); Mean Platelet Volume 9.5 fL (7.4-10.4); Platelet Count 304 10^3/uL (130-400); Red Blood Cell Count 3.99 10^6/uL (4.20-5.40); Red Cell Dist. Width 13.3 % (11.5-14.5); White Blood Cell Count 4.7 10^3/uL (4.8-10.8)
[2023-09-16 12:20] LABS: INR 0.93; PT 12.4 Sec (11.4-14.6)
[2023-09-16 12:21] LABS: APTT 26.7 Sec (23.4-35.0)
[2023-09-16 12:33] LABS: ALT (SGPT) 33 U/L (0-35); AST (SGOT) 35 U/L (14-36); Albumin 4.6 g/dl (3.5-5.0); Alkaline Phosphatase 75 U/L (38-126); Blood Urea Nitrogen 13 mg/dl (7-17); Calcium 10.1 mg/dl (8.4-10.2); Carbon Dioxide 28 mmol/L (22-30); Chloride 103 mmol/L (98-107); Glucose 92 mg/dl (70-99); Potassium 4.4 mmol/L (3.5-5.1); Sodium 136 mmol/L (135-145); Total Bilirubin 0.5 mg/dl (0.2-1.3); Total Protein 7.3 g/dl (6.3-8.2); eGFR > 60.00
== END ==
LOC: OIDL 11:06
PROVIDERS: ATTENDING PHYSICIAN Internal Medicine Hematology & Oncology; PRIMARYCARE PHYSICIAN Family Medicine
DX: C90.00 Multiple myeloma not having achieved remission (principal); G89.3 Neoplasm related pain (acute) (chronic); D80.1 Nonfamilial hypogammaglobulinemia; R58 Hemorrhage, not elsewhere classified; Z86.2 Personal history of diseases of the blood and blood-forming organs and certain disorders involving the immune mechanism
CPT/HCPCS: 36415; 80053; 82784; 83521; 84155; 84165; 85025; 85610; 85730; 86334

== ENCOUNTER → 2023-10-29 11:39 | Outpatient (REF) | payer MEDICARE, SELFPAY | LOC: RAD 11:39 | PROVIDERS: ATTENDING PHYSICIAN Nurse Practitioner Adult Health | DX: R05.1 Acute cough (principal) | CPT/HCPCS: 71046 ==

== ENCOUNTER → 2023-11-19 08:42 | Outpatient (REF) | payer MEDICARE, SELFPAY ==
[2023-11-19 08:51] LABS: % Eosinophils 2.8 % (0-6); % Immature Granulocytes 0.3 % (0-0.5); % Lymphocytes 36.2 % (20.5-51.1); % Monocytes 8.8 % (1.7-9.3); % Neutrophils 50.9 % (42.2-75.2); Absolute Basophils 0.1 10^3/uL (0-0.2); Absolute Eosinophils 0.2 10^3/uL (0-0.7); Absolute Lymphocytes 2.2 10^3/uL (1.2-3.4); Absolute Monocytes 0.5 10^3/uL (0.1-0.6); Absolute Neutrophils 3.1 10^3/uL (1.4-6.5); Hematocrit 38.9 % (37.0-47.0); Hemoglobin 12.8 g/dL (12.0-16.0); Mean Corp Hgb Conc. 32.9 g/dL (33.0-37.0); Mean Corpuscular Hgb 32.6 pg (27.0-31.0); Mean Platelet Volume 9.3 fL (7.4-10.4); Platelet Count 350 10^3/uL (130-400); Red Blood Cell Count 3.93 10^6/uL (4.20-5.40); Red Cell Dist. Width 13.9 % (11.5-14.5)
[2023-11-19 11:11] LABS: ALT (SGPT) 40 U/L (0-35); AST (SGOT) 47 U/L (14-36); Albumin 4.2 g/dl (3.5-5.0); Alkaline Phosphatase 95 U/L (38-126); Blood Urea Nitrogen 20 mg/dl (7-17); Carbon Dioxide 25 mmol/L (22-30); Chloride 106 mmol/L (98-107); Glucose 85 mg/dl (70-99); Potassium 4.6 mmol/L (3.5-5.1); Sodium 140 mmol/L (135-145); Total Bilirubin 0.3 mg/dl (0.2-1.3); Total Protein 6.7 g/dl (6.3-8.2); eGFR 58.39
[2023-11-21 06:19] LABS: Beta-2-Microglobulin 1.8 mg/L (<=3.0)
== END ==
LOC: OIDL 08:42
PROVIDERS: ATTENDING PHYSICIAN Internal Medicine Hematology & Oncology
DX: C90.00 Multiple myeloma not having achieved remission (principal); G89.3 Neoplasm related pain (acute) (chronic); D80.1 Nonfamilial hypogammaglobulinemia; C90.01 Multiple myeloma in remission
CPT/HCPCS: 36415; 80053; 82232; 82784; 83521; 84155; 84165; 85025; 86334

== ENCOUNTER 2023-12-01 02:51 | Inpatient (IN) | payer MEDICARE, SELFPAY ==
[2023-12-01] VITALS (14 sets, daily range): BP systolic 148–209; BP diastolic 51–101; BMI 25.7
--- NOTE | 2023-12-01 00:11 | ED.GENMED ---
History of Present Illness
<SHERMAN Ness - Last Filed: 12/01/23 05:33>
General
Chief Complaint: Abdominal Pain
Source: patient
Exam Limitations: none
Time Seen by Provider: 12/01/23 00:10
Nursing documentation reviewed up to this point in time: agreed with
History of Present Illness
History of Present Illness:
78-year-old female presents for evaluation of abdominal pain. Pt states that her pain began at approximately 20:00 on 11/29 and has been worsening. Pain is currently located in the epigastric region as well as the LUQ and RUQ, and intermittently
radiates to the low back. Pt was able to have one normal bowel movement following the onset of her symptoms. She admits to nausea but denies vomiting. Pt denies oral intake since the onset of her symptoms. She has not taken any medications for her
symptoms. Pain is currently 10/10 per pt. Pt was last seen at [place] [facility] in July of 2023 for similar symptoms and was diagnosed with enteritis. Pt currently in distress and is tachypneic and diaphoretic. She does endorse a history of recent 'GI
bug' which resolved several days ago. She denies fever, chills, constipation, diarrhea, bloody stools, hematuria, dysuria, increased urgency and frequency of urination, rash, CP, SOB, and dizziness.
Past History
<SHERMAN Ness - Last Filed: 12/01/23 05:33>
Past History
ED Past Medical History: Other (Diverticulitis, IBS) and Other (Multiple myeloma)
ED Past Surgical History: Bowel resection (Sigmoid resection), Orthopedic and Other
Patient has exhibited threatening behavior?: No
Social History
Tobacco: Non-smoker
Alcohol: Occasional
Drug: None
Personal:
Living: alone
Employment: Retired
Family History
Family History: Other (Mother with coronary artery disease sister with breast cancer)
Review of Systems
<SHERMAN Ness - Last Filed: 12/01/23 05:33>
Review of Systems
Allergies reviewed?: Yes
Constitutional: Reports no symptoms
EENT: Reports no symptoms
Respiratory: Reports no symptoms
Cardiac: Reports no symptoms
ABD/GI: Reports abdominal pain and nausea
: Reports no symptoms
Musculoskeletal: Reports joint pain and muscle pain
Skin: Reports no symptoms
Neurological: Reports no symptoms
Endocrine: Reports no symptoms
Hematologic/Lymphatic: Reports no symptoms
Psychiatric: Reports no symptoms
Phy Exam
<SHERMAN Ness - Last Filed: 12/01/23 05:33>
General Physical Exam
General Presentation: moderate distress
General age: appears stated age
General Skin: diaphoretic
General Habitus: normal
General Mental: alert
General Hydration: appears well hydrated
Cardiovascular Exam
Cardiovascular Exam: regular rate/rhythm
Pulmonary Exam
Pulmonary Exam: lungs clear and no respiratory distress
Gastrointestinal Exam
Gastrointestinal Exam: abnormal bowel sounds (generalized diminished bowel sounds ), distended and no masses
Palpation: left upper quadrant: Severe tenderness, left lower quadrant: Mild tenderness, right upper quadrant: Severe tenderness and right lower quadrant: Mild tenderness
Neurological Exam
Neurological Exam: alert and oriented x3
Skin Exam
Skin Exam: diaphoresis
Course
<SHERMAN Ness - Last Filed: 12/01/23 05:33>
Orders/Labs/Results
Orders:
Orders
12/01/23 00:23
Urinalysis Reflex To Culture Urgent
12/01/23 00:26
Electrocardiogram (*1) Stat
Reason for Study: Abdominal Pain
EKG- Treatment ONCE
12/01/23 00:27
0.9% Sodium Chloride 1000 ml [Nss] 1,000 ml IV BOLUS
HYDROmorphone [Dilaudid] 1 mg IV NOW STA
Ondansetron Injectable [Zofran] 4 mg IV NOW STA
Pantoprazole [Protonix IV] 40 mg IV NOW STA
12/01/23 01:11
Complete Blood Count/With Diff Urgent
Comment: REDRAW
Comprehensive Metabolic Panel Urgent
Comment: REDRAW
Lactic Acid Urgent
Lipase Urgent
12/01/23 01:16
CT Abd/pelvis W Iv Cont Urgent
Comment:
Reason For Exam: severe upper abd pain
12/01/23 01:39
0.9% Sodium Chloride 1000 ml [Nss] 1,000 ml IV BOLUS
12/01/23 01:55
HYDROmorphone [Dilaudid] 0.5 mg .ROUTE .STK-MED ONE
HYDROmorphone [Dilaudid] 0.5 mg IV NOW STA
12/01/23 01:59
GI tube insertion- Treatment ONCE
12/01/23 02:36
Admit/Transfer Patient As Directed
Co-Sign Provider:
Level of Care: Inpatient admission
Assign to:: Medical/Surgical
Physician / Group: htay
Diagnosis: SBO, HTN urgency
Reason for Hospitalization: SBO
Expected length of stay greater than two midnights?: Yes
ELOS- Estimated Length of Stay in days: 3
I certify the patient meets the requirements for IP care: Yes
12/01/23 02:39
Code Status As Directed
Resuscitation Status: Full Code
12/01/23 02:48
Lidocaine 2% [Lidocaine Uro-Jet 2%] 1 syringe .ROUTE .STK-MED ONE
12/01/23 03:23
HydrALAZINE [Apresoline] 10 mg IV Q4HPRN PRN
12/01/23 03:51
HYDROmorphone [Dilaudid] 0.5 mg IV Q4HPRN PRN
12/01/23 04:15
Ondansetron Injectable [Zofran] 4 mg IV Q6HPRN PRN
12/01/23 04:50
0.9% Sodium Chloride 1000 ml [Nss] 1,000 ml IV 80 mls/hr
Bisacodyl [Dulcolax] 10 mg RECTAL [id number] PRN
Docusate W/Senna [Senokot-S] 1 tablet PO BIDPRN PRN
Lorazepam [Ativan] 1 mg IV Q6HPRN PRN
Polyethylene Glycol Powder [Miralax] 17 grams PO DAILYPRN PRN
12/01/23 04:50
Consult Notification Routine
Specialty to Notify: Surgical
SURGICAL CONSULT Routine
Consulting Provider: Igor Cervantes
Was physician already notified: No
Reason for consult: Recurrent SBO, HX BW resection
Activity As Directed
Activity Level: With Assistance
Intake/ Output As Directed
Frequency: Per unit guidelines
Vital Signs As Directed
Frequency: Per unit guidelines
Weight As Directed
Frequency: Daily
DX Deep Vein Thrombosis Video Routine
12/01/23 Breakfast
NPO
Allow oral meds: No
Allow clear liquids: No
NPO with Ice Chips: Yes
12/01/23 08:00
Heparin 5,000 units SC Q12
12/01/23 Lunch
NPO
Allow oral meds: No
Allow clear liquids: Sips of Clears
12/02/23 06:00
Basic Metabolic Panel IN AM
Complete Blood Count/No Diff IN AM
12/03/23 06:00
Basic Metabolic Panel IN AM
Complete Blood Count/No Diff IN AM
Abnormal Lab Results
12/01/23
01:11
RBC 4.14 L 10^6/uL
(4.20-5.40)
MCH 32.9 H pg
(27.0-31.0)
Absolute Neuts (auto) 6.7 H 10^3/uL
(1.4-6.5)
Absolute Monos (auto) 0.7 H 10^3/uL
(0.1-0.6)
Lymphocytes % 16.7 L %
(20.5-51.1)
Chloride 108 H mmol/L
(98-107)
BUN 20 H mg/dl
(7-17)
Glucose 117 H mg/dl
(70-99)
Lactic Acid 2.5 H mmol/L
(0.7-2.0)
Lipase 642 H U/L
(23-300)
12/01/23 01:11
12/01/23 01:11
Vital Signs
Initial and Last Documented VS:
Initial Vital Signs
Temp Pulse Resp BP Pulse Ox
98.2 F 70 19 200/101 99
12/01/23 00:05 12/01/23 00:05 12/01/23 00:05 12/01/23 00:05 12/01/23 00:05
Last Documented Vital Signs
Temp Pulse Resp BP Pulse Ox
97.7 F 62 20 168/66 99
12/01/23 05:23 12/01/23 05:23 12/01/23 05:23 12/01/23 05:23 12/01/23 05:23
<Shaniqua Archibald, - Last Filed: 12/01/23 03:36>
Orders/Labs/Results
Orders:
Orders
12/01/23 00:23
Urinalysis Reflex To Culture Urgent
12/01/23 00:26
Electrocardiogram (*1) Stat
Reason for Study: Abdominal Pain
EKG- Treatment ONCE
12/01/23 00:27
0.9% Sodium Chloride 1000 ml [Nss] 1,000 ml IV BOLUS
HYDROmorphone [Dilaudid] 1 mg IV NOW STA
Ondansetron Injectable [Zofran] 4 mg IV NOW STA
Pantoprazole [Protonix IV] 40 mg IV NOW STA
12/01/23 01:11
Complete Blood Count/With Diff Urgent
Comment: REDRAW
Comprehensive Metabolic Panel Urgent
Comment: REDRAW
Lactic Acid Urgent
Lipase Urgent
12/01/23 01:16
CT Abd/pelvis W Iv Cont Urgent
Comment:
Reason For Exam: severe upper abd pain
12/01/23 01:39
0.9% Sodium Chloride 1000 ml [Nss] 1,000 ml IV BOLUS
12/01/23 01:55
HYDROmorphone [Dilaudid] 0.5 mg .ROUTE .STK-MED ONE
HYDROmorphone [Dilaudid] 0.5 mg IV NOW STA
12/01/23 01:59
GI tube insertion- Treatment ONCE
12/01/23 02:36
Admit/Transfer Patient As Directed
Co-Sign Provider:
Level of Care: Inpatient admission
Assign to:: Medical/Surgical
Physician / Group: htay
Diagnosis: SBO, HTN urgency
Reason for Hospitalization: SBO
Expected length of stay greater than two midnights?: Yes
ELOS- Estimated Length of Stay in days: 3
I certify the patient meets the requirements for IP care: Yes
12/01/23 02:39
Code Status As Directed
Resuscitation Status: Full Code
12/01/23 02:48
Lidocaine 2% [Lidocaine Uro-Jet 2%] 1 syringe .ROUTE .STK-MED ONE
12/01/23 03:23
HydrALAZINE [Apresoline] 10 mg IV Q4HPRN PRN
12/01/23 03:51
HYDROmorphone [Dilaudid] 0.5 mg IV Q4HPRN PRN
12/01/23 04:15
Ondansetron Injectable [Zofran] 4 mg IV Q6HPRN PRN
12/01/23 04:50
0.9% Sodium Chloride 1000 ml [Nss] 1,000 ml IV 80 mls/hr
Bisacodyl [Dulcolax] 10 mg RECTAL [id number] PRN
Docusate W/Senna [Senokot-S] 1 tablet PO BIDPRN PRN
Lorazepam [Ativan] 1 mg IV Q6HPRN PRN
Polyethylene Glycol Powder [Miralax] 17 grams PO DAILYPRN PRN
12/01/23 04:50
Consult Notification Routine
Specialty to Notify: Surgical
SURGICAL CONSULT Routine
Consulting Provider: Igor Cervantes
Was physician already notified: No
Reason for consult: Recurrent SBO, HX BW resection
Activity As Directed
Activity Level: With Assistance
Intake/ Output As Directed
Frequency: Per unit guidelines
Vital Signs As Directed
Frequency: Per unit guidelines
Weight As Directed
Frequency: Daily
DX Deep Vein Thrombosis Video Routine
12/01/23 Breakfast
NPO
Allow oral meds: No
Allow clear liquids: No
NPO with Ice Chips: Yes
12/01/23 08:00
Heparin 5,000 units SC Q12
12/01/23 Lunch
NPO
Allow oral meds: No
Allow clear liquids: Sips of Clears
12/02/23 06:00
Basic Metabolic Panel IN AM
Complete Blood Count/No Diff IN AM
12/03/23 06:00
Basic Metabolic Panel IN AM
Complete Blood Count/No Diff IN AM
Abnormal Lab Results
12/01/23
01:11
RBC 4.14 L 10^6/uL
(4.20-5.40)
MCH 32.9 H pg
(27.0-31.0)
Absolute Neuts (auto) 6.7 H 10^3/uL
(1.4-6.5)
Absolute Monos (auto) 0.7 H 10^3/uL
(0.1-0.6)
Lymphocytes % 16.7 L %
(20.5-51.1)
Chloride 108 H mmol/L
(98-107)
BUN 20 H mg/dl
(7-17)
Glucose 117 H mg/dl
(70-99)
Lactic Acid 2.5 H mmol/L
(0.7-2.0)
Lipase 642 H U/L
(23-300)
12/01/23 01:11
12/01/23 01:11
Vital Signs
Initial and Last Documented VS:
Initial Vital Signs
Temp Pulse Resp BP Pulse Ox
98.2 F 70 19 200/101 99
12/01/23 00:05 12/01/23 00:05 12/01/23 00:05 12/01/23 00:05 12/01/23 00:05
Last Documented Vital Signs
Temp Pulse Resp BP Pulse Ox
97.7 F 62 20 168/66 99
12/01/23 05:23 12/01/23 05:23 12/01/23 05:23 12/01/23 05:23 12/01/23 05:23
<SHERMAN Ness - Last Filed: 12/01/23 05:33>
MDM/Problems Addressed
Differential Diagnosis Includes:
SBO, pancreatitis, biliary colic, gastroenteritis
<SHERMAN Ness - Last Filed: 12/01/23 05:33>
*Critical Care Note
Total Time (30-74mins, 75-104mins- exclusive of procedures): Not Applicable
<Shaniqua Archibald DO - Last Filed: 12/01/23 03:36>
*Radiology
Radiology exam reviewed: preliminary read by ED provider (NG tube below the diaphragm) and radiology read reviewed (CAT scan shows small bowel obstruction with dilated loops of small bowel measuring up to 4.1 cm and transition point within the right
lower quadrant. Mild mesenteric edema. Normal gallbladder.)
*Pulse Oximetry
Patient hypoxic: no
*EKG
Interpreted by ED Provider?: Yes
Interpretation: normal
Comparison EKG: no changes (Unchanged from previous August 03, 2023)
Rate: bradycardiac
Rhythm: sinus
[place]: left axis deviation
Interval: normal interval
QRS Pattern: normal QRS
Ischemia: no ischemia
*Wire Worker Interpretation
Rate: bradycardiac
Interpretation: normal
Rhythm: sinus
*Critical Care Note
Total Time (30-74mins, 75-104mins- exclusive of procedures): Not Applicable
ED Attending Note
<SHERMAN Ness - Last Filed: 12/01/23 05:33>
-
Portions of this chart may have been created with voice recognition software.� Occasional wrong word or��sound alike� substitutions may have occurred due to the inherent limitations of voice recognition software.
<Shaniqua Archibald DO - Last Filed: 12/01/23 03:36>
ED Attending Note
Patient seen and examined by attending physician: Yes
I performed the substantive portion of visit, reviewed & personally made and approve the management plan that is documented in note by myself or LIZ.: Yes
ED Attending Note:
This is a 78-year-old woman who resides at home independently. She has history of recurrent diverticulitis requiring sigmoidectomy 2020 with complicated postop course with ileus, bleeding requiring prolonged hospitalization with TPN. Subsequently
diagnosed with multiple myeloma and had undergone treatment for this with Dr. Haddad at [place] as well as Dr. Ziegler locally. She has been off of Revlimid since August 2022, myeloma currently stable but she continues to receive monthly injections of
Xgeva as well as monthly infusions of IVIG due to recurrent upper respiratory infections (last IVIG 11/16/23). She has prior history of partial small bowel obstructions, intermittent episodes of enteritis as well as IBS, as well as has history of
recurrent severe abdominal pain for which she has been evaluated in this ED May, June and then again in July 2023. On 2 occasions CAT scan showed mild enteritis and on most recent ED visit in July unremarkable imaging including CT,
abdominal ultrasound and obstruction series. She follows with GI and underwent upper endoscopy August of this year showing small gastric polyp otherwise unremarkable.
She does admit to mild episode of abdominal pain perhaps a month ago which she treated successfully with Bentyl.
Tonight however she developed moderate generalized upper abdominal pain that began around 8 PM and has been getting progressively worse over the ensuing hours. She admits to nausea but has had no vomiting. She did pass 1 soft stool shortly after
onset of abdominal pain but since then has not been passing gas nor further bowel movements. She complains of significant abdominal bloating and distention that has been getting worse over the evening hours. She denies chest pain or back pain, no
fever no chills.
Similar severe upper abdominal pain noted during ED visit July of this year.
She suffered a URI early October with fever for approximately a week, negative COVID-19 testing at home and unremarkable outpatient chest x-ray October 28.
Surveillance PET scan November 08 showing numerous small scattered lytic lesions consistent with patient's history of multiple myeloma but no demonstrable FDG uptake.
GENERAL: 78-year-old woman appears her stated age, awake and alert, appears in significant distress related to pain. Easily communicative. Intermittently wincing in pain but remains cooperative. Moderately hypertensive. Afebrile.
EYE: pupils equal and reactive. anicteric
NECK: Supple, nontender, no meningismus, no significant adenopathy.
ENT: oral mucosa is moist. No rhinorrhea.
CARDIAC: Regular rate and rhythm. no murmur.
LUNGS: Clear breath sounds bilaterally, no acute respiratory distress, no wheezes/rales/rhonchi
ABDOMEN: Rotund, mildly distended, moderately firm with exquisite tenderness epigastric region, moderately hypoactive slightly high-pitched bowel sounds, no cvat.
NEUROLOGICAL: Alert and oriented x3, no focal neuro deficits.
SKIN: Warm and dry, normal color, skin intact. No rash.
MUSCULOSKELETAL: No C/C/E. peripheral pulses are full and equal b/l. No palpable tenderness.
PSYCH: Moderately anxious related to pain. Cooperative.
Concern for recurrent small bowel obstruction, enteritis, gastric volvulus, pancreatitis, cholecystitis, diverticulitis, ischemic bowel. Other consideration is to exacerbation of irritable bowel syndrome.
Will medicate for pain and nausea, initiate IV fluids, will check labs including lactic acid, EKG and plan for CT abdomen pelvis.
12/01/2023 0216 AM
Patient is much more comfortable, moderate return of pain after initial dose of Dilaudid, has been remedicated. Nausea has improved.
CAT scan shows small bowel obstruction with multiple dilated loops of small bowel measuring up to 4.1 cm with transition point in the right lower quadrant and mild mesenteric edema.
Lactic acid is mildly elevated at 2.5 mm. IV fluid bolus, 30 mL/kg infusing.
White blood cell count is normal. Minimally elevated BUN with normal creatinine.
Mildly elevated lipase concerning for mild pancreatitis, unclear if this is secondary to small bowel obstruction.
Due to significantly dilated stomach full of fluid and dilated proximal loops of small bowel we will plan for NG tube to low intermittent suction and will admit to hospitalist service.
Will continue IV fluids, pain medications.
Discharge Plan
Departure
Patient Disposition: Admit
Date of Disposition: 12/01/23
Time of Disposition: 02:15
Admit to: Med/Surg
Admit to doctor: Marysol
Presentation/result/management discussed w/ accepting MD/DO: Hospitalist
Condition: Serious
Discharge Problem:
acute small bowel obstruction, elevated lipase; acute pancreatitis, Acute lactic acidosis
Interventions
Interventions:
*Risk Screen - Suicide Last Done: 12/01/23 00:05
*General Assessment Last Done: 12/01/23 00:05
*Neglect/Abuse Screening Last Done: 12/01/23 00:05
*ED COVID-19 Vaccine History Last Done: 12/01/23 00:05
*Nursing Disposition Last Done: 12/01/23 04:41
[facility]-Uoexuf-Poebvxepcp Assessment Last Done: 12/01/23 01:00
Discharge Date and Time
Discharge Date/Time: 12/01/23 04:42
[2023-12-01] MEDS: ZOFRAN 4 MG IV ×2 (00:34→04:20)
[2023-12-01] MEDS: PROTONIX IV 40 MG IV ×2 (00:34→09:03)
[2023-12-01] MEDS: DILAUDID 1 MG IV (00:34)
[2023-12-01] MEDS: NSS 1000 IV ×4 (00:35→17:22)
[2023-12-01 01:22] LABS: % Eosinophils 1.6 % (0-6); % Immature Granulocytes 0.2 % (0-0.5); % Lymphocytes 16.7 % (20.5-51.1); % Monocytes 7.2 % (1.7-9.3); % Neutrophils 73.3 % (42.2-75.2); Absolute Basophils 0.1 10^3/uL (0-0.2); Absolute Eosinophils 0.2 10^3/uL (0-0.7); Absolute Lymphocytes 1.5 10^3/uL (1.2-3.4); Absolute Monocytes 0.7 10^3/uL (0.1-0.6); Absolute Neutrophils 6.7 10^3/uL (1.4-6.5); Hematocrit 38.5 % (37.0-47.0); Hemoglobin 13.6 g/dL (12.0-16.0); Mean Corp Hgb Conc. 35.3 g/dL (33.0-37.0); Mean Corpuscular Hgb 32.9 pg (27.0-31.0); Mean Platelet Volume 10.4 fL (7.4-10.4); Nucleated Red Blood Cells % 0 %; Platelet Count 228 10^3/uL (130-400); Red Blood Cell Count 4.14 10^6/uL (4.20-5.40); Red Cell Dist. Width 14.3 % (11.5-14.5); White Blood Cell Count 9.1 10^3/uL (4.8-10.8)
[2023-12-01 01:36] LABS: Lactic Acid 2.5 mmol/L (0.7-2.0)
[2023-12-01 01:37] LABS: ALT (SGPT) 22 U/L (0-35); AST (SGOT) 29 U/L (14-36); Alkaline Phosphatase 83 U/L (38-126); Blood Urea Nitrogen 20 mg/dl (7-17); Calcium 9.8 mg/dl (8.4-10.2); Carbon Dioxide 27 mmol/L (22-30); Chloride 108 mmol/L (98-107); Glucose 117 mg/dl (70-99); Lipase 642 U/L (23-300); Sodium 141 mmol/L (135-145); Total Bilirubin 0.4 mg/dl (0.2-1.3); Total Protein 6.7 g/dl (6.3-8.2); eGFR 58.39
[2023-12-01] MEDS: DILAUDID 0.5 MG IV ×5 (01:57→22:51)
--- NOTE | 2023-12-01 02:31 | HPS.HSE ---
Family Physician
-
Family Physician: Chalino Garnica Jr.
Chief Complaint
-
abdominal pain and nausea
History of Present Illness
78M HX SBO, Sigmoid BW resection, Diverticulitis , Myeloma, IBS seen at ER for evalaution of acute onset diffuse abdominal pian. POS Nause , no vomiting. Report BM after the onset of diffuse abdominal pain.
At ER
Distress and is tachypneic and diaphoretic.
BP 220/110
Medical History
Past Medical History
Past Medical History: Reports Other
Additional Past Medical History:
Diverticulitis
Multiple myeloma
Past Surgical History: Reports Other
Additional Past Surgical History:
Bowel resection
Sigmoid resection
Lumpectomy
Social History
Tobacco: Non-smoker
Alcohol: Daily (Glass of wine with dinner)
Drug: None
Family History
Family History: Not pertinent
Allergies / Home Medications
Allergies reflects when Allergies were last updated in [employer].
Home Medications with original date entered in [employer]
Allergy/Medication List:
Allergies
Allergy/AdvReac Type Severity Reaction Status Date / Time
adhesive Allergy Bandaid - Verified 12/01/23 00:04
local
reaction
asparagus Allergy Asthma Verified 12/01/23 00:04
symptoms
benzoyl peroxide Allergy Puffs up, Verified 12/01/23 00:04
itchy, red
- topical
for acne
cat dander Allergy 'Very Verified 12/01/23 00:04
allergic'
cat pelt standardized Allergy Asthma Verified 12/01/23 00:04
allergenic ex
latex [Latex] Allergy Rash Verified 12/01/23 00:04
melon Allergy Honeydew - Verified 12/01/23 00:04
asthma
mold Allergy Shortness Verified 12/01/23 00:04
of Breath
piperacillin [From Zosyn] Allergy Developed Verified 12/01/23 00:04
Sensitivity
pollen extracts Allergy Asthma, Verified 12/01/23 00:04
gets sick
Sulfa (Sulfonamide Allergy Anaphylaxis Verified 12/01/23 00:04
Antibiotics)
sulfamethoxazole Allergy Anaphylaxis Verified 12/01/23 00:04
[From Bactrim]
tazobactam [From Zosyn] Allergy Developed Verified 12/01/23 00:04
Sensitivity
trimethoprim [From Bactrim] Allergy Anaphylaxis Verified 12/01/23 00:04
prednisone AdvReac Worsened Verified 12/01/23 00:04
Lymes
Disease
symptoms
chemicals Allergy asthma Uncoded 12/01/23 00:04
Home Medications
polyvinyl alcohol-povidone (PF) 1.4 %-0.6 % eye drops in a dropperette (Refresh Classic (PF)) 1 drops BOTH EYES DAILYPRN PRN dry eyes 07/19/19
famotidine 40 mg tablet 40 mg PO DAILY Gastrointestinal issue 10/23/20
acetaminophen 500 mg tablet (Tylenol Extra Strength) 1,000 mg PO BIDPRN PRN mild pain 01/22/21
alprazolam 0.25 mg tablet 0.25 mg PO DAILYPRN PRN anxiety 01/22/21
ascorbic acid (vitamin C) 500 mg tablet (Vitamin C) 1,000 mg PO DAILY Supplement 01/22/21
aspirin 81 mg tablet,delayed release 81 mg PO DAILY Blood clot prevention/tx 01/22/21
calcium carbonate (Oyster Shell Calcium 500) 1,500 mg PO DAILY Supplement 01/22/21
cholecalciferol (vitamin D3) 25 mcg (1,000 unit) tablet 5,000 units PO DAILY Supplement 01/22/21
cranberry 1,000 mg capsule 1,000 mg PO DAILY Supplement 01/22/21
fish, borage, flaxseed oils-omega 3,6,9 comb no.1 1,200 mg capsule ([place] 3-6-9) 1,200 mg PO DAILY Supplement 01/22/21
gabapentin 300 mg capsule 400 mg PO HS Pain 01/22/21
milk thistle 500 mg capsule 500 mg PO DAILY Supplement 01/22/21
multivitamin with folic acid 400 mcg tablet (Tab-A-Jacquie) 1 tab PO DAILY Supplement 01/22/21
buprenorphine 15 mcg/hour weekly transdermal patch (Butrans) 1 patch topical Q7D 09/09/21
polyethylene glycol 3350 17 gram oral powder packet 17 grams PO DAILYPRN PRN constipation 09/09/21
hydralazine 25 mg tablet 12.5 mg (1/2 x 25 mg) PO TID #90 tabs 12/18/22
dicyclomine 10 mg capsule 10 - 20 mg (1 - 2 x 10 mg) PO TID PRN abdominal pain #20 caps 05/26/23
dicyclomine 20 mg tablet 20 mg PO QID PRN abdominal pain #20 tabs 06/13/23
loperamide 2 mg capsule (Imodium A-D) 2 mg PO Q6H PRN loose stool #20 caps 06/13/23
Review of Systems
-
Constitutional: Reports No Symptoms
EENT: Reports No Symptoms
Respiratory: Reports No Symptoms
Cardiac: Reports No Symptoms
Abdomen/GI: Reports Abdominal Pain and Nausea; Denies Vomiting or Diarrhea
: Reports No Symptoms
Musculoskeletal: Reports No Symptoms
Skin: Reports No Symptoms
Neurological: Reports No Symptoms
Endocrine: Reports No Symptoms
Hematologic/Lymphatic: Reports No Symptoms
Psych: Reports No Symptoms
Physical Exam
Vital Signs
Vital Signs
Temp Pulse Resp BP Pulse Ox
98.2 F 51 11 209/83 97
12/01/23 00:05 12/01/23 01:30 12/01/23 01:30 12/01/23 01:18 12/01/23 01:30
Physical Exam
General: Well Developed, Well Nourished, Appears in Distress and Pain
HEENT: NormoCephalic, Anicteric and Moist mucous membranes
Respiratory: Clear; No Wheezes, Rales or Rhonchi
Cardiac: S1/S2 and Regular Rhythm
GI: Soft, Non Tender, Tender (generalized tenderness worse at LLQ , mild tenderness at RUQ ) and Other (Generalized diminished bowel sounds ), distended and no masses Palpation: left upper quadrant: Severe tenderness, left lower quadrant: Mild
tenderness, right upper quadrant: Severe tenderness and right lower quadrant: Mild tenderness)
Genito-urinary: Deferred by me
Musculoskeletal: No Edema
Skin: Warm and Dry
Neuro: Awake, Alert and AO x 3
Psych: Calm
Laboratory Results
-
12/01/23 01:11
12/01/23 01:11
Laboratory Results
Lactic Acid 2.5 mmol/L (0.7-2.0) H 12/01/23 01:11
Total Bilirubin 0.4 mg/dl (0.2-1.3) 12/01/23 01:11
AST 29 U/L (14-36) 12/01/23 01:11
ALT 22 U/L (0-35) 12/01/23 01:11
Alkaline Phosphatase 83 U/L (38-126) 12/01/23 01:11
Lipase 642 U/L (23-300) H 12/01/23 01:11
Data Reviewed
-
CT Scan: Report Reviewed by me
Lab Data: Labs Reviewed by me
Old Records: Reviewed
Impression/Plan
-
Reviewed VS: HR 51 BP 210/83
Data
nl CBC
Cl 108
BUN 20
Cr 1.0
eGFR 58
LA 2.[address] AP
small bowel obstruction with multiple dilated loops of small bowel measuring up to 4.1 cm with transition point in the right lower quadrant and mild mesenteric edema.
ASSESSMENT & PLAN
SBO : Recurrent
Associated lactate acidosis
Eleavted Lipase due to SBO
HX Sigmoid BW resection
- NGT
- NPO and IVF
- PRN IV Dilaudid analgesia
- AR anti emetics
- GS consulted
HX Diverticulitis required sigmoidectomy
HTN urgency
- IV Hydralazine PRN
Multiple myeloma ( Dxed 2019 at [facility]) with chronic back pain with chronic T12 compression fx
-follows at [facility]
- on immunotherapy infusion [id number]
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
- Held OP PO Meds due to NPO
DVT Px: SQH
Code: Full code
IP MS
[2023-12-01] MEDS: APRESOLINE 10 MG IV (03:30)
[2023-12-01] MEDS: ATIVAN 1 MG IV ×3 (05:05→22:58)
--- NOTE | 2023-12-01 06:26 | PTCARENOTE ---
Received pt from ER,anxious,tearful,pt off stretcher to void on BSC,tolerated this activity well.VS stable,no resp distress,NGT intact patent immediate light pink think stomach contents emptied when attached to suction .Pt medicated with Ativan 1mg
iv to help her relax,pt very receptive.Abd pain is controlled at this time,once in bed pt asleep.
--- NOTE | 2023-12-01 08:01 | PTCARENOTE ---
Dr. Reyes notified that patient refused AM dose of heparin. RN provided education on importance of heparin. Patient refused teaching. No new orders at this time. Care ongoing.
[2023-12-01] MEDS: NSS (PRESERVATIVE FREE) 10 ML IV (09:02)
--- NOTE | 2023-12-01 10:01 | CM ---
Patient seen at bedside. Patient with NG tube in place. Patient states that she lives in a 3 story home with 6 steps to enter and is independent of ADL's and IADL's. Patient reports that she has been sick off and on since october 17. Patient plans
for discharge home with no needs. Patient [address] [place] and she uses the [facility] [address] Patient no longer uses home helpers. Patient plan is for discharge home with friend help and no discharge needs anticipated. CM will continue to follow for
discharge planning needs.
Plan; home with no needs anticipated at this time
--- NOTE | 2023-12-01 10:38 | CON.GS ---
Medical History
-
Chief Complaint: Abdominal pain, nausea, emesis
History of Present Illness:
Patient is a 78 yo F with a PMH of anxiety, multiple myeloma, asthma and recurrent URIs, recurrent diverticulitis s/p hand-assisted sigmoidectomy in 2019 at [facility], [place], and multiple SBO's. History is somewhat limited due to patient's inability to
focus on the issue at hand. Reports suffering a viral enteritis the previous week. States that she had multiple loose, nonbloody bowel movements at that time. Symptoms of abdominal discomfort and distention have progressed over the past several
days. Associated nausea and vomiting. Abdominal pain is crampy and comes in waves. Noted some improvement with of NGT. No flatus or BM since admission.
Past Medical History
Past Medical History: Asthma, Psychiatric (Anxiety) and Other (Multiple myeloma)
Past Surgical History: Bowel Resection (Laparoscopic hand-assisted sigmoidectomy in 2019 at [facility] )
Social History
Tobacco: Non-Smoker
Alcohol: None
Drug: None
Family History
Family History: Reviewed & Not Pertinent
Allergies / Home Medications
Allergy/AdvReac Type Severity Reaction Status Date / Time
adhesive Allergy Bandaid - Verified 12/01/23 00:04
local
reaction
asparagus Allergy Asthma Verified 12/01/23 00:04
symptoms
benzoyl peroxide Allergy Puffs up, Verified 12/01/23 00:04
itchy, red
- topical
for acne
cat dander Allergy 'Very Verified 12/01/23 00:04
allergic'
cat pelt standardized Allergy Asthma Verified 12/01/23 00:04
allergenic ex
latex [Latex] Allergy Rash Verified 12/01/23 00:04
melon Allergy Honeydew - Verified 12/01/23 00:04
asthma
mold Allergy Shortness Verified 12/01/23 00:04
of Breath
piperacillin [From Zosyn] Allergy Developed Verified 12/01/23 00:04
Sensitivity
pollen extracts Allergy Asthma, Verified 12/01/23 00:04
gets sick
Sulfa (Sulfonamide Allergy Anaphylaxis Verified 12/01/23 00:04
Antibiotics)
sulfamethoxazole Allergy Anaphylaxis Verified 12/01/23 00:04
[From Bactrim]
tazobactam [From Zosyn] Allergy Developed Verified 12/01/23 00:04
Sensitivity
trimethoprim [From Bactrim] Allergy Anaphylaxis Verified 12/01/23 00:04
prednisone AdvReac Worsened Verified 12/01/23 00:04
[place]
Disease
symptoms
chemicals Allergy asthma Uncoded 12/01/23 00:04
�Medication �Instructions �Recorded �Confirmed �Type
polyvinyl alcohol-povidone (PF) 1 drops BOTH EYES DAILYPRN PRN dry 07/19/19 12/01/23 History
1.4 %-0.6 % eye drops in a eyes
dropperette (Refresh Classic (PF))
famotidine 40 mg tablet 40 mg PO DAILY Gastrointestinal 10/23/20 12/01/23 History
issue
alprazolam 0.25 mg tablet 0.25 mg PO DAILYPRN PRN anxiety 01/22/21 12/01/23 History
ascorbic acid (vitamin C) 500 mg 1,000 mg PO DAILY Supplement 01/22/21 12/01/23 History
tablet (Vitamin C)
calcium carbonate (Oyster Shell 1,500 mg PO Supplement 01/22/21 08/03/23 History
Calcium 500)
cholecalciferol (vitamin D3) 25 5,000 units PO DAILY Supplement 01/22/21 12/01/23 History
mcg (1,000 unit) tablet
cranberry 1,000 mg capsule 1,000 mg PO DAILY Supplement 01/22/21 12/01/23 History
gabapentin 300 mg capsule 400 mg PO HS Pain 01/22/21 12/01/23 History
milk thistle 500 mg capsule 500 mg PO DAILY Supplement 01/22/21 12/01/23 History
multivitamin with folic acid 400 1 tab PO DAILY Supplement 01/22/21 12/01/23 History
mcg tablet (Tab-A-Jacquie)
polyethylene glycol 3350 17 gram 17 grams PO DAILYPRN PRN 09/09/21 12/01/23 History
oral powder packet constipation
dicyclomine 20 mg tablet 20 mg PO QID PRN abdominal pain 06/13/23 12/01/23 Rx
#20 tabs
cetirizine 10 mg tablet (Zyrtec) 10 mg PO HS 12/01/23 12/01/23 History
montelukast 10 mg tablet 10 mg PO HS 12/01/23 12/01/23 History
(Singulair)
Review of Systems
-
A 10 point review of systems was completed, and was negative except as per HPI.
Physical Exam
Vital Signs
Temp Pulse Resp BP Pulse Ox
97.4 F 67 18 148/59 98
12/01/23 07:30 12/01/23 07:30 12/01/23 07:30 12/01/23 07:30 12/01/23 07:30
11/30/23 12/01/23 12/02/23
06:59 06:59 06:59
Actual Weight 70.1 kg
Body Mass Index (BMI) 25.7
Lab Results
12/01/23 01:11
12/01/23 01:11
WBC 9.1 10^3/uL (4.8-10.8) 12/01/23 01:11
Hgb 13.6 g/dL (12.0-16.0) 12/01/23 01:11
Hct 38.5 % (37.0-47.0) 12/01/23 01:11
Plt Count 228 10^3/uL (130-400) 12/01/23 01:11
Abs Immat Gran (auto) 0.0 10^3/uL (0-0.05) 12/01/23 01:11
Neutrophils % 73.3 % (42.2-75.2) 12/01/23 01:11
Physical Exam
General: Well Developed, Well Nourished and No Apparent Distress
HEENT: Normocephalic, Anicteric and Other (NGT with clear/light red outputs)
Respiratory: Non Labored Respirations
Cardiac: Regular Rhythm
GI: Soft, Tender (Diffusely though mostly in upper abdomen), Distended (Tympanitic), Incisions (Well-healed) and Other (Nonperitoneal)
Musculoskeletal: No Edema
Skin: Warm and Dry
Neuro: Nonfocal/Grossly Intact
Data Reviewed
-
CT Scan: Image Personally Visualized and interpreted and Report Reviewed by me
Labs: Labs Reviewed by me
Old Records: Reviewed
Assessment / Plan
-
Patient is a 78 yo F p/w SBO likely secondary to adhesions
Patient well versed on the natural history and pathophysiology of SBO's given her multiple prior episodes; all of which have been managed nonoperatively. Patient expresses little interest in proceeding with surgical intervention. CT scan imaging
was reviewed and no evidence of pneumatosis or free air, significant SB dilation with a transition point appearing to occur in the RLQ/pelvis. AP VSS and normal WBC, mildly elevated lactate at 2.5, repeat pending. Recommend initial trial of
medical management with bowel rest and IVF. Would consider contrast study (UGI) tomorrow if no return of bowel function. All questions answered.
-- NPO, IVF, NGT decompression
-- Trend lactate
-- Minimize narcotics as able, correct lytes
-- UGI tomorrow if no clinical improvement
[2023-12-01 12:53] LABS: Urine Albumin Negative (Neg - Trace); Urine Bilirubin Negative (Negative); Urine Character Clear (Clear); Urine Color Yellow; Urine Glucose Negative (Negative); Urine Ketone Negative (Negative); Urine Leukocyte Negative (Negative); Urine Nitrite Negative (Negative); Urine Occult Blood Negative (Negative); Urine Urobilinogen Negative (Neg - 1+)
[2023-12-01] MEDS: HYDROCORTISONE 1% LOTION 1 APPLIC TOPICAL ×2 (14:43→20:13)
[2023-12-02 01:07] LABS: Glucose - Point of Care 118 mg/dl (70-99)
[2023-12-02 03:22] VITALS: BP 160/60
[2023-12-02] MEDS: NSS 1000 IV (05:36)
[2023-12-02 06:00] VITALS: BMI 25.5
[2023-12-02 06:45] LABS: Hematocrit 35.6 % (37.0-47.0); Hemoglobin 12.3 g/dL (12.0-16.0); Mean Corp Hgb Conc. 34.6 g/dL (33.0-37.0); Mean Corpuscular Hgb 33.7 pg (27.0-31.0); Mean Corpuscular Volume 97.5 fL (81.0-99.0); Mean Platelet Volume 10.6 fL (7.4-10.4); Platelet Count 185 10^3/uL (130-400); Red Blood Cell Count 3.65 10^6/uL (4.20-5.40); Red Cell Dist. Width 14.5 % (11.5-14.5); White Blood Cell Count 6.6 10^3/uL (4.8-10.8)
[2023-12-02 07:03] LABS: Blood Urea Nitrogen 10 mg/dl (7-17); Calcium 8.2 mg/dl (8.4-10.2); Carbon Dioxide 24 mmol/L (22-30); Chloride 108 mmol/L (98-107); Estimated Creatinine Clearance 62 ml/min; Glucose 98 mg/dl (70-99); Potassium 3.4 mmol/L (3.5-5.1); Sodium 138 mmol/L (135-145); eGFR > 60.00
[2023-12-02 07:25] VITALS: BP 142/80
[2023-12-02] MEDS: HYDROCORTISONE 1% LOTION 1 APPLIC TOPICAL ×2 (07:49→21:01)
[2023-12-02] MEDS: NSS (PRESERVATIVE FREE) 10 ML IV (07:50)
[2023-12-02] MEDS: DILAUDID 0.5 MG IV ×3 (07:50→22:27)
[2023-12-02] MEDS: PROTONIX IV 40 MG IV (07:50)
--- NOTE | 2023-12-02 09:11 | W.PN.GS2 ---
Today's Communication / Plan
-
Upper GI today.
Assessment / Plan
-
This is a 78-year-old female with a history of multiple myeloma, diverticulitis status post hand-assisted sigmoidectomy in 2019 at [facility], complicated by multiple recurrent small bowel obstructions who presented on 12/01/2023 with
abdominal pain, nausea vomiting and noncontrast CT imaging concerning for recurrent small bowel obstruction, likely adhesive.
N.p.o., IV fluids.
PPI for blood-tinged output from the NG tube, hemoglobin stable.
Will plan for an upper GI series today, ordered. Hopefully this will be both therapeutic and diagnostic.
Minimize narcotics as able, correct electrolytes.
General surgery will continue to follow
Time Spent
Total Time Spent with Patient (in minutes): 20
Subjective Data
-
Date of Service: December 02, 2023
Interval Events:
No acute events overnight. Endorses some continued nausea, denies bowel function. Pain improved.
Objective Data
-
Intake and Output
12/01/23 12/02/23 12/03/23
06:59 06:59 06:59
Intake Total 80 / 80 2009
Output Total 300 / 300 1210 / 1210
Balance -220 / -220 800 / 800
Intake:
Oral fluids 0 / 0
IV fluids (Total) 80 / 80 1920 / 1920
Amount instilled into GI Tube ( 90 / 90
Total)
[place] Sump 90 / 90
Output:
Gastrointestinal tube output ( 300 / 300 610 / 610
Total)
[place] Sump 300 / 300 610 / 610
Urine, Voided 600 / 600
Other:
Number of approximated MODERATE 1
amounts of urine
Number of approximated LARGE 1
amounts of urine
Vital Signs
Temp Pulse Resp BP Pulse Ox
98.6 F 62 17 142/80 96
12/02/23 07:25 12/02/23 07:25 12/02/23 07:25 12/02/23 07:25 12/02/23 07:25
Lab Results
12/02/23 06:19
12/02/23 06:19
Calcium 8.2 mg/dl (8.4-10.2) L D 12/02/23 06:19
Total Bilirubin 0.4 mg/dl (0.2-1.3) 12/01/23 01:11
AST 29 U/L (14-36) 12/01/23 01:11
ALT 22 U/L (0-35) 12/01/23 01:11
Alkaline Phosphatase 83 U/L (38-126) 12/01/23 01:11
Total Protein 6.7 g/dl (6.3-8.2) 12/01/23 01:11
Albumin 4.0 g/dl (3.5-5.0) 12/01/23 01:11
Physical Exam
-
GENERAL/NEURO: Awake, Alert, no distress
CHEST: Unlabored breathing on RA, NG tube with blood-tinged bilious output
ABDOMEN: Soft, Non-Tender, distended
[2023-12-02] MEDS: ZOFRAN 4 MG IV (10:09)
--- NOTE | 2023-12-02 10:27 | CM ---
NPO IV Fluids.
Maintained NG tube.
For Upper GI.
Independent prior to admission.
PLAN Home no anticipated needs
--- NOTE | 2023-12-02 10:32 | PTCARENOTE ---
Confirmed with Dr. Diamond that it is OK to disconnect patients NG tube from suction to go to x-ray. Care ongoing at this time.
[2023-12-02] MEDS: BENADRYL 12.5 MG IV (12:17)
[2023-12-02] MEDS: CILOXAN 0.3% OPHTHALMIC SOLUTION 1 DROP OPHTH ×4 (12:17→23:04)
[2023-12-02] MEDS: ATIVAN 1 MG IV (12:29)
--- NOTE | 2023-12-02 12:53 | W.PN.HOSP.TC ---
Today's Communication/Plan
-
f/u SBFT
f/u hbg level
diet/NGT per GS
Assessment / Plan
Assessment / Plan
CT a/p
Findings suspicious for at least partial distal small bowel obstruction with transition point suggested in the right lower quadrant with some accompanying mild mesenteric edema. Recommend correlation with serum lactate level. No free air. Small
right renal angiomyolipoma and subcentimeter low-attenuation lesion too small to characterize. Osseous changes again seen correlating with known history of Multiple Myeloma. Stable likely chronic T12 vertebral compression fracture. Small
centrilobular nodules and groundglass opacities in the right middle lobe may be inflammatory/infectious.

1. SBO
-CT a/p report as above
-have h/o of SBo in past
-f/u on SBFT today
-[place] sump output of 610 ml overnight. monitor
-not passing gas. absent BS
-Maintain on IVF/pain meds/anti-emetics
2. Essential HTN -uncontrolled
HTN urgency
-Maintain on IV hydralazine as needed for systolic pressure above 160
-Will start oral medication once cleared
3. Eye swelling
-blepharitis? vs hordeolum
-initially was on left eye, RN notified right eye swelling as well
-have extensive list of allergy, unclear if allergic reaction
-Benadryl trial and Cipro eye drops order
4. Multiple myeloma
-Not on any medication
-Creatinine/hemoglobin/calcium wnl
5. Hypokalemia
-replaced
Diverticulitis
h/o sigmoid resection
h/o lumpectomy
History of TIA
Depression/anxiety
History of drug-induced neuropathy
Moderate MR
GERD
DVT PPX - heparin
Full code
Anticipated Discharge: > 48 hours
Subjective/Interval History
-
Date of Service: December 02, 2023
Continues to have increased output from [place] sum, 610 mL of reddish-brownish liquid over last 24-hour
Not able to pass gas
Denies significant abdominal pain/nausea
Bilateral eye swelling
Objective Data
-
Labs:
Laboratory Results
12/02/23
06:19
WBC 6.6
Hgb 12.3
Hct 35.6 L
Plt Count 185
Sodium 138
Potassium 3.4 L
Chloride 108 H
Carbon Dioxide 24
BUN 10
Creatinine 0.7
Glucose 98
Calcium 8.2 L D
Vital Signs:
Vital Signs
Temp Pulse Resp BP Pulse Ox
98.6 F 62 17 142/80 96
12/02/23 07:25 12/02/23 07:25 12/02/23 07:25 12/02/23 07:25 12/02/23 07:25
I&O
12/01/23 12/02/23 12/03/23
06:59 06:59 06:59
Intake Total 80 / 80 2009
Output Total 300 / 300 1210 / 1210
Balance -220 / -220 800 / 800
Review of Systems
-
Respiratory: Reports No Symptoms
Cardiac: Reports No Symptoms
Abdomen/GI: Denies Abdominal Pain or Nausea
Physical Exam
-
General: No Apparent Distress and Comfortable
HEENT: Negative Oxygen
Respiratory: Clear to Auscultation
Cardiac: Regular Rhythm and S1/S2; Negative Murmur or Rub
GI: Soft; Negative Normal Bowel Sounds, Tender or Distended
Musculoskeletal: No Edema
Neuro: Awake, Alert, Oriented, No Motor Deficits and Nonfocal/Grossly Intact
Psych: Calm
[2023-12-02] MEDS: KCL 260 MEQ IV (13:31)
[2023-12-02] MEDS: LR 1000 IV (16:07)
[2023-12-02 23:18] VITALS: BP 167/77
[2023-12-03] MEDS: DILAUDID 0.5 MG IV ×2 (02:30→08:11)
[2023-12-03] MEDS: CILOXAN 0.3% OPHTHALMIC SOLUTION 1 DROP OPHTH ×5 (03:26→20:01)
[2023-12-03] MEDS: LR 1000 IV ×2 (03:30→16:18)
[2023-12-03 05:54] VITALS: BMI 24.9
[2023-12-03 06:51] LABS: Hematocrit 34.8 % (37.0-47.0); Hemoglobin 12.2 g/dL (12.0-16.0); Mean Corp Hgb Conc. 35.1 g/dL (33.0-37.0); Mean Corpuscular Hgb 33.7 pg (27.0-31.0); Mean Corpuscular Volume 96.1 fL (81.0-99.0); Mean Platelet Volume 10.3 fL (7.4-10.4); Platelet Count 191 10^3/uL (130-400); Red Blood Cell Count 3.62 10^6/uL (4.20-5.40); Red Cell Dist. Width 13.9 % (11.5-14.5); White Blood Cell Count 8.5 10^3/uL (4.8-10.8)
[2023-12-03 07:22] LABS: Blood Urea Nitrogen 8 mg/dl (7-17); Calcium 8.5 mg/dl (8.4-10.2); Carbon Dioxide 23 mmol/L (22-30); Chloride 104 mmol/L (98-107); Estimated Creatinine Clearance 54 ml/min; Glucose 75 mg/dl (70-99); Potassium 3.3 mmol/L (3.5-5.1); Sodium 136 mmol/L (135-145); eGFR > 60.00
[2023-12-03 07:38] VITALS: BP 183/81
[2023-12-03] MEDS: HYDROCORTISONE 1% LOTION TOPICAL (08:01)
[2023-12-03] MEDS: PROTONIX IV 40 MG IV (08:03)
[2023-12-03] MEDS: NSS (PRESERVATIVE FREE) 10 ML IV (08:03)
[2023-12-03] MEDS: ZOFRAN 4 MG IV (08:10)
--- NOTE | 2023-12-03 08:52 | W.PN.GS2 ---
Today's Communication / Plan
-
`
Assessment / Plan
-
Assessment: 78-year-old female with a history of multiple myeloma, diverticulitis status post hand-assisted sigmoidectomy in 2019 at [facility], complicated by multiple recurrent small bowel obstructions who presented on 12/01/2023
with abdominal pain, nausea vomiting and noncontrast CT imaging concerning for recurrent small bowel obstruction, likely adhesive.
AFVSS
SBFT 12/01 - delayed transit but reaches cecum within few hours
NGT outputs improving and nonbilious; + flatus
Plan: NGT removed for po challenge - start with sips/chips
follow abd xrays to monitor for progression of yesterdays oral contrast
PPI for blood-tinged output from the NG tube - stable
Subjective Data
-
Date of Service: December 03, 2023
pt seen and examined
c/o sinus pain, anthony and sore throat/pain from NGT
denies abd pains, no nausea
+ flatus, no BMs
Objective Data
-
Intake and Output
12/02/23 12/03/23 12/04/23
06:59 06:59 06:59
Intake Total 2100 / 2100 920 / 920
Output Total 1210 / 1210 400 / 400
Balance 890 / 890 520 / 520
Intake:
Oral fluids 0 / 0
IV fluids (Total) 1920 / 1920 740 / 740
Amount instilled into GI Tube ( 180 / 180 180 / 180
Total)
[place] Sump 180 / 180 180 / 180
Output:
Gastrointestinal tube output ( 610 / 610 400 / 400
Total)
[place] Sump 610 / 610 400 / 400
Urine, Voided 600 / 600
Other:
Number of approximated MODERATE 3
amounts of urine
Number of approximated LARGE 1
amounts of urine
Vital Signs
Temp Pulse Resp BP Pulse Ox
98.8 F 66 16 183/81 98
12/03/23 07:38 12/03/23 07:38 12/03/23 07:38 12/03/23 07:38 12/03/23 07:38
Lab Results
12/03/23 06:18
12/03/23 06:18
Calcium 8.5 mg/dl (8.4-10.2) 12/03/23 06:18
Total Bilirubin 0.4 mg/dl (0.2-1.3) 12/01/23 01:11
AST 29 U/L (14-36) 12/01/23 01:11
ALT 22 U/L (0-35) 12/01/23 01:11
Alkaline Phosphatase 83 U/L (38-126) 12/01/23 01:11
Total Protein 6.7 g/dl (6.3-8.2) 12/01/23 01:11
Albumin 4.0 g/dl (3.5-5.0) 12/01/23 01:11
Physical Exam
-
NAD AAOx3
ABD: soft, ND, minimal tenderness in spots, no R/R/G
NGT left nares; minimal gastric contents in canister, nonbilious
[2023-12-03 10:32] VITALS: BP 179/77
--- NOTE | 2023-12-03 11:11 | CM ---
Met with patient at bedside; NGT removed; PO challenge today
Patient reported that Partner will provide ride home
IMM benefit explained; form signed @ 1035
Plan: discharge to home when stable; no services needed
[2023-12-03] MEDS: ATIVAN 1 MG IV (12:50)
--- NOTE | 2023-12-03 13:09 | W.PN.HOSP.TC ---
Today's Communication/Plan
-
diet per GS
IV hydralazine adjusted for SBP > 160
Assessment / Plan
Assessment / Plan
CT a/p
Findings suspicious for at least partial distal small bowel obstruction with transition point suggested in the right lower quadrant with some accompanying mild mesenteric edema. Recommend correlation with serum lactate level. No free air. Small
right renal angiomyolipoma and subcentimeter low-attenuation lesion too small to characterize. Osseous changes again seen correlating with known history of Multiple Myeloma. Stable likely chronic T12 vertebral compression fracture. Small
centrilobular nodules and ground-glass opacities in the right middle lobe may be inflammatory/infectious.
Small pelon FT
1. Mild distention of ileal small bowel loops in the pelvis which have decreased in distention since 12/01/2023.
2. Mildly delayed small bowel transit of contrast, but no evidence for complete small bowel obstruction. A mild residual partial small bowel obstruction or ileus is a diagnostic possibility.
3. 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
Abd xr
Unchanged prominent loop of small bowel, likely ileum, projecting over the lower midline abdomen which may be persistent partial obstruction or resolving focal ileus. There is no residual contrast present within the small bowel.
Findings of known multiple myeloma with lytic foci throughout the axial skeleton and vertebral compression deformities, unchanged from prior.

1. Small bowel obstruction
-CT a/p report as above
-have h/o of SBO in the past
-SBFT report above.
-Follow-up abdomen x-ray reviewed
-NG tube has been removed
-General surgery planning to start diet
2. Essential HTN -uncontrolled
HTN urgency
-Patient remains hypertensive, requested nurse to provide IV hydralazine 10 mg
-Further dosing needs to be given for systolic blood pressure greater than 160
3. Eye swelling
-blepharitis? vs hordeolum
-initially was on left eye, RN notified right eye swelling as well
-have extensive list of allergy, unclear if allergic reaction
-Benadryl trial and Cipro eye drops order
4. Multiple myeloma
-Not on any medication
-Creatinine/hemoglobin/calcium wnl
5. Hypokalemia
-replaced
Diverticulitis
h/o sigmoid resection
h/o lumpectomy
History of TIA
Depression/anxiety
History of drug-induced neuropathy
Moderate MR
GERD
DVT PPX - heparin
Full code
Anticipated Discharge: Within 24 hours
Subjective/Interval History
-
Date of Service: December 03, 2023
Unable to pass gas
Nausea better no vomiting episode
NG tube has been removed in the morning
Objective Data
-
Labs:
Laboratory Results
12/03/23
06:18
WBC 8.5
Hgb 12.2
Hct 34.8 L
Plt Count 191
Sodium 136
Potassium 3.3 L
Chloride 104
Carbon Dioxide 23
BUN 8
Creatinine 0.8
Glucose 75
Calcium 8.5
Vital Signs:
Vital Signs
Temp Pulse Resp BP Pulse Ox
98.8 F 62 16 179/77 98
12/03/23 07:38 12/03/23 10:32 12/03/23 07:38 12/03/23 10:32 12/03/23 07:38
I&O
12/02/23 12/03/23 12/04/23
06:59 06:59 06:59
Intake Total 2100 / 2100 920 / 920
Output Total 1210 / 1210 400 / 400
Balance 890 / 890 520 / 520
Review of Systems
-
Cardiac: Reports No Symptoms
Abdomen/GI: Reports Abdominal Pain; Denies Nausea
Physical Exam
-
General: Comfortable
HEENT: Negative Oxygen
Respiratory: Clear to Auscultation
Cardiac: Regular Rhythm and S1/S2; Negative Murmur or Rub
GI: Soft; Negative Normal Bowel Sounds, Tender or Distended
Musculoskeletal: No Edema
Neuro: Awake, Alert, Oriented, No Motor Deficits and Nonfocal/Grossly Intact
Psych: Calm
[2023-12-03 15:09] VITALS: BP 168/76
[2023-12-03] MEDS: APRESOLINE 10 MG IV ×2 (15:32→22:44)
[2023-12-03] MEDS: CILOXAN 0.3% OPHTHALMIC SOLUTION OPHTH (15:33)
[2023-12-03 16:19] VITALS: BP 165/79
[2023-12-03] MEDS: TORADOL 15 MG IV (18:20)
--- NOTE | 2023-12-03 19:27 | PTCARENOTE ---
Patient had NGT removed this shift and is now on clear liquid diet. Vital signs are stable, pt is not experiencing nausea/vomiting but endorsed some abdominal pain post clear liquid meal. Pt remains on IVF and PRN hydralazine given for SBP >160 per
order. Pt was very resistant to blood pressure medication administration, RN provided education to patient on hydralazine and all other medications distributed this shift. RN also updated patient on plan of care and abdominal x-ray results, but
patient requested Dr. Villarreal speak to her personally about her plan of care. RN paged cable installation manager surgery provider who called into room to speak with patient on phone.
Pt is accusatory and demanding of staff this shift, also displays signs of severe anxiety. RN medicated patient per order and per pt request with Ativan. Pt verbalized to RN that, 'we are not answering her call lights' and also told physical
therapy, 'they do not come help her to the bathroom, so I am going by myself'. Additionally told her in front of primary RN that she is unable to finish her meal because 'I am interrupting her by taking her blood pressure and giving her
medications'. RN addressed comments to patient with at bedside and reminded patient that ' RN and PCT have been in her room toileting her, checking on her IVF, and answering her questions all shift long'. RN also corrected patient and
explained that 'her food tray had been delivered 10 minutes before she had to administer medications and re-take her blood pressure'. In that 10 minutes she had consumed all her soup and half of a matteo rambo and that RN 'needed to re-check her blood
pressure because she had given her PRN hydralazine and needed to see if it was affective', RN continued to explain that she also 'wanted to give patients 1600 medications on time as to not delay care'. Patient told RN, 'I don't need to hear this
from you, leave me alone'. RN let patient know that 'if she needed anything else she would be outside'.
[2023-12-03] MEDS: HYDROCORTISONE 1% LOTION 1 APPLIC TOPICAL (20:01)
[2023-12-03 20:08] VITALS: BP 160/75
[2023-12-03] MEDS: DILAUDID 0.25 MG IV (22:42)
[2023-12-03 23:11] VITALS: BP 169/77
[2023-12-04] MEDS: CILOXAN 0.3% OPHTHALMIC SOLUTION 1 DROP OPHTH ×4 (00:11→12:15)
[2023-12-04 00:25] VITALS: BP 148/76
[2023-12-04] MEDS: ATIVAN 1 MG IV (01:10)
[2023-12-04] MEDS: NSS (PRESERVATIVE FREE) 0.5 ML IV (01:11)
[2023-12-04] MEDS: LR 1000 IV (05:00)
[2023-12-04 06:00] VITALS: BMI 24.9
[2023-12-04 07:06] VITALS: BP 155/70
[2023-12-04 07:40] LABS: Hematocrit 32.8 % (37.0-47.0); Hemoglobin 11.6 g/dL (12.0-16.0); Mean Corp Hgb Conc. 35.4 g/dL (33.0-37.0); Mean Corpuscular Hgb 33.3 pg (27.0-31.0); Mean Corpuscular Volume 94.3 fL (81.0-99.0); Mean Platelet Volume 10.6 fL (7.4-10.4); Platelet Count 221 10^3/uL (130-400); Red Blood Cell Count 3.48 10^6/uL (4.20-5.40); White Blood Cell Count 6.7 10^3/uL (4.8-10.8)
[2023-12-04 08:04] LABS: Blood Urea Nitrogen 8 mg/dl (7-17); Calcium 8.5 mg/dl (8.4-10.2); Carbon Dioxide 27 mmol/L (22-30); Chloride 105 mmol/L (98-107); Estimated Creatinine Clearance 62 ml/min; Glucose 90 mg/dl (70-99); Potassium 3.4 mmol/L (3.5-5.1); Sodium 137 mmol/L (135-145); eGFR > 60.00
--- NOTE | 2023-12-04 08:21 | W.PN.GS2 ---
Today's Communication / Plan
-
`
Assessment / Plan
-
Assessment: 78-year-old female with a history of multiple myeloma, diverticulitis status post hand-assisted sigmoidectomy in 2019 at [facility], complicated by multiple recurrent small bowel obstructions who presented on 12/01/2023
with abdominal pain, nausea vomiting and noncontrast CT imaging concerning for recurrent small bowel obstruction, likely adhesive.
AFVSS
SBFT 12/01 - delayed transit but reaches cecum within few hours
Xray abd 12/02 - contrast throughout colon, nonobstructive bowel gas pattern
has tolerated removal of NGT and clears
Plan: follow up abd xray today to monitor for bowel distention
continue dietary advancement to low residue, smaller meals
start daily miralax
Subjective Data
-
Date of Service: December 04, 2023
pt seen and examined
occasional cramps/abd discomfort
continues to pass flatus regularly but no BM yet
mild nausea at times but requesting to eat food
Objective Data
-
Intake and Output
12/03/23 12/04/23 12/05/23
06:59 06:59 06:59
Intake Total 920 / 920 1934
Output Total 400 / 400
Balance 520 / 520 1934
Intake:
Oral fluids 1260 / 1260
IV fluids (Total) 740 / 740 675 / 675
Amount instilled into GI Tube ( 180 / 180
Total)
[place] Sump 180 / 180
Output:
Gastrointestinal tube output ( 400 / 400
Total)
[place] Sump 400 / 400
Other:
Number of approximated MODERATE 3 1
amounts of urine
Number of approximated LARGE 1 3
amounts of urine
Vital Signs
Temp Pulse Resp BP Pulse Ox
98.7 F 61 18 155/70 97
12/04/23 07:06 12/04/23 07:06 12/04/23 07:06 12/04/23 07:06 12/04/23 07:06
Lab Results
12/04/23 04:54
12/04/23 04:54
Calcium 8.5 mg/dl (8.4-10.2) 12/04/23 04:54
Total Bilirubin 0.4 mg/dl (0.2-1.3) 12/01/23 01:11
AST 29 U/L (14-36) 12/01/23 01:11
ALT 22 U/L (0-35) 12/01/23 01:11
Alkaline Phosphatase 83 U/L (38-126) 12/01/23 01:11
Total Protein 6.7 g/dl (6.3-8.2) 12/01/23 01:11
Albumin 4.0 g/dl (3.5-5.0) 12/01/23 01:11
Physical Exam
-
NAD AAOx3
ABD: soft but a bit of tympany on percussion. no tenderness, no R/R/G
[2023-12-04] MEDS: HYDROCORTISONE 1% LOTION 1 APPLIC TOPICAL (09:30)
[2023-12-04] MEDS: MIRALAX 17 GRAMS PO (09:32)
[2023-12-04] MEDS: PROTONIX IV IV ×2 (09:33→09:39)
[2023-12-04] MEDS: NSS (PRESERVATIVE FREE) 10 ML IV (09:33)
[2023-12-04] MEDS: TYLENOL 1000 MG PO (09:48)
--- NOTE | 2023-12-04 11:55 | W.PN.HOSP.TC ---
Today's Communication/Plan
-
monitor on LR diet
start losartan for BP
potential discharge later today
Assessment / Plan
Assessment / Plan
CT a/p
Findings suspicious for at least partial distal small bowel obstruction with transition point suggested in the right lower quadrant with some accompanying mild mesenteric edema. Recommend correlation with serum lactate level. No free air. Small
right renal angiomyolipoma and subcentimeter low-attenuation lesion too small to characterize. Osseous changes again seen correlating with known history of Multiple Myeloma. Stable likely chronic T12 vertebral compression fracture. Small
centrilobular nodules and ground-glass opacities in the right middle lobe may be inflammatory/infectious.
Small pelon FT
1. Mild distention of ileal small bowel loops in the pelvis which have decreased in distention since 12/01/2023.
2. Mildly delayed small bowel transit of contrast, but no evidence for complete small bowel obstruction. A mild residual partial small bowel obstruction or ileus is a diagnostic possibility.
3. 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
Abd xr
Unchanged prominent loop of small bowel, likely ileum, projecting over the lower midline abdomen which may be persistent partial obstruction or resolving focal ileus. There is no residual contrast present within the small bowel.
Findings of known multiple myeloma with lytic foci throughout the axial skeleton and vertebral compression deformities, unchanged from prior.

1. Small bowel obstruction
-CT a/p report as above
-have h/o of SBO in the past
-SBFT report above.
-Follow-up abdomen x-ray reviewed
-NG tube has been removed
-Patient able to pass gas. Has been started on low residue diet. Monitor if patient could tolerate.
-GS help appreciated
2. Essential HTN -uncontrolled
HTN urgency
-started on losartan PO
3. Eye swelling
-blepharitis? vs hordeolum
-initially was on left eye, RN notified right eye swelling as well
-have extensive list of allergy, unclear if allergic reaction
-Benadryl trial and Cipro eye drops order
4. Multiple myeloma
-Not on any medication
-Creatinine/hemoglobin/calcium wnl
5. Hypokalemia
-replaced
Diverticulitis
h/o sigmoid resection
h/o lumpectomy
History of TIA
Depression/anxiety
History of drug-induced neuropathy
Moderate MR
GERD
DVT PPX - heparin
Full code
Anticipated Discharge: Within 24 hours
Subjective/Interval History
-
Date of Service: December 04, 2023
patient able to pass gas
no BM
denies abd pain/nausea/vomiting
Objective Data
-
Labs:
Laboratory Results
12/04/23
04:54
WBC 6.7
Hgb 11.6 L
Hct 32.8 L
Plt Count 221
Sodium 137
Potassium 3.4 L
Chloride 105
Carbon Dioxide 27
BUN 8
Creatinine 0.7
Glucose 90
Calcium 8.5
Vital Signs:
Vital Signs
Temp Pulse Resp BP Pulse Ox
98.7 F 61 18 155/70 97
12/04/23 07:06 12/04/23 07:06 12/04/23 07:06 12/04/23 07:06 12/04/23 10:53
I&O
12/03/23 12/04/23 12/05/23
06:59 06:59 06:59
Intake Total 920 / 920 1934
Output Total 400 / 400
Balance 520 / 520 1934
Review of Systems
-
Respiratory: Reports No Symptoms
Cardiac: Reports No Symptoms
Abdomen/GI: Denies Abdominal Pain, Nausea or Vomiting
Physical Exam
-
General: Comfortable
HEENT: Negative Oxygen
Respiratory: Clear to Auscultation
Cardiac: Regular Rhythm and S1/S2; Negative Murmur or Rub
GI: Soft and Normal Bowel Sounds; Negative Tender
Musculoskeletal: No Edema
Neuro: Awake, Alert, Oriented, No Motor Deficits and Nonfocal/Grossly Intact
Psych: Calm
[2023-12-04] MEDS: COZAAR 50 MG PO (12:14)
[2023-12-04 14:11] VITALS: BP 166/77
--- NOTE | 2023-12-05 17:15 | W.DCSUMMARY ---
Discharge Summary
Discharge Data
Date of Admission: 12/01/23
Date of Discharge: 12/04/23
-
Pending Results: No
Hospital Course
Discharging Physician : Dr Alli Reyes
Disposition : Home
Primary care physician : Dr Virginia Garnica
Principal Discharge diagnosis :
Partial small bowel obstruction
Hypertensive urgency
Possible blepharitis versus hordeolum
Chronic Discharge diagnosis :
Essential hypertension
History of multiple myeloma
History of diverticulitis
History of sigmoid resection
History of lumpectomy
History of transient ischemic attack
Depression/anxiety
History of drug-induced neuropathy
Moderate mitral regurgitation
Gastroesophageal reflux disease
Hospital Course :
Patient is 78-year-old female with above-mentioned past medical history came to ER for having new onset of nausea without vomiting. Patient was having diffuse abdominal pain and was unable to pass any stool. In ER patient had a CT abdomen pelvis
which was suggestive of partial distal small bowel obstruction with a transition point in right lower quadrant. Patient developed exacerbating pain and persistent nausea/vomiting and NG tube was placed for gastric decompression. General surgery
was involved in care. Patient had a follow-up small bowel follow-through and abdominal x-ray which showed contrast passing into colon. Patient was started on trial of liquid diet which patient was able to tolerate without problem. Post
improvement of bowel function patient was advanced to low residue diet. At this point patient was discharged home.
Important imaging findings :
None
Procedure findings :
None
Discharge Plan
-
Patient Disposition: Home (Routine Discharge)
Discharge Diagnosis/Procedures: SBO
Condition: Fair
Diet: Low Residue
Activity: As tolerated
Driving Restrictions: No driving for 24 hours
Bathing Restrictions: OK to Shower
Referrals:
Chalino Garnica Jr., DO [Family Provider] - in one week
Additional Discharge Medication Instructions: Stop bentyl
Prescriptions:
Continued
Refresh Classic (PF) 10 DROPS dropperette
1 drops BOTH EYES DAILYPRN PRN (Reason: dry eyes)
famotidine 40 MG tablet
40 mg PO DAILY
milk thistle 500 MG capsule
500 mg PO DAILY
calcium carbonate [Oyster Shell Calcium 500] 500 MG tablet
1,500 mg PO
ascorbic acid (vitamin C) [Vitamin C] 500 MG tablet
1,000 mg PO DAILY
gabapentin 300 MG capsule
400 mg PO HS
cranberry 1,000 MG capsule
1,000 mg PO DAILY
cholecalciferol (vitamin D3) 1,000 UNITS tablet
5,000 units PO DAILY
multivitamin with folic acid [Tab-A-Jacquie] 1 TABLET tablet
1 tab PO DAILY
alprazolam 0.25 MG tablet
0.25 mg PO DAILYPRN PRN (Reason: anxiety)
Patient Comments:
09/09/21: last filled 06/19/21, 15 tabs [facility]
polyethylene glycol 3350 17 GRAMS powder in packet
17 grams PO DAILYPRN PRN (Reason: constipation)
cetirizine [Zyrtec] 10 mg Tablet
10 mg PO HS
montelukast [Singulair] 10 mg Tablet
10 mg PO HS
Discontinued
dicyclomine 20 mg tablet
20 mg PO QID PRN (Reason: abdominal pain) Qty: 20 2RF
Discharge Orders:
Discharge Patient (As Directed); Ordered 12/04/23
Ordered By: Alli Reyes
Discharge Date and Time
Discharge Date/Time: 12/04/23 15:49
Print Language: CAMBODIAN
== END 2023-12-04 15:49 | disposition home or self-care (01) | DRG 389 ==
LOC: 2 SOUTH 02:51
PROVIDERS: ADMITTING PHYSICIAN Internal Medicine; ATTENDING PHYSICIAN Hospitalist; CONSULT PHYSICIAN Surgery; EMERGENCY PHYSICIAN Emergency Medicine; FAMILY PHYSICIAN Family Medicine
DX: K56.600 Partial intestinal obstruction, unspecified as to cause (principal); E87.20 Acidosis, unspecified; I16.0 Hypertensive urgency
CPT/HCPCS: 71045; 74018; 74177; 74240; 74248; 80048; 80053; 81003; 82962; 83605; 83690; 85025; 85027; 93005; 96361; 96374; 96375; 96376; 99285; Q9967

== ENCOUNTER → 2023-12-24 08:46 | Outpatient (REF) | payer MEDICARE, SELFPAY ==
[2023-12-24 09:10] LABS: % Basophils 0.8 % (0-2); % Immature Granulocytes 0.2 % (0-0.5); % Lymphocytes 22.1 % (20.5-51.1); % Monocytes 7.2 % (1.7-9.3); % Neutrophils 67.7 % (42.2-75.2); Absolute Basophils 0.1 10^3/uL (0-0.2); Absolute Eosinophils 0.1 10^3/uL (0-0.7); Absolute Lymphocytes 1.4 10^3/uL (1.2-3.4); Absolute Monocytes 0.4 10^3/uL (0.1-0.6); Absolute Neutrophils 4.2 10^3/uL (1.4-6.5); Hematocrit 38.9 % (37.0-47.0); Hemoglobin 13.1 g/dL (12.0-16.0); Mean Corp Hgb Conc. 33.7 g/dL (33.0-37.0); Mean Corpuscular Hgb 32.8 pg (27.0-31.0); Mean Corpuscular Volume 97.5 fL (81.0-99.0); Platelet Count 308 10^3/uL (130-400); Red Blood Cell Count 3.99 10^6/uL (4.20-5.40); Red Cell Dist. Width 13.8 % (11.5-14.5); White Blood Cell Count 6.2 10^3/uL (4.8-10.8)
[2023-12-24 10:12] LABS: ALT (SGPT) 21 U/L (0-35); AST (SGOT) 29 U/L (14-36); Albumin 4.6 g/dl (3.5-5.0); Alkaline Phosphatase 97 U/L (38-126); Blood Urea Nitrogen 12 mg/dl (7-17); Calcium 10.3 mg/dl (8.4-10.2); Carbon Dioxide 26 mmol/L (22-30); Chloride 105 mmol/L (98-107); Glucose 100 mg/dl (70-99); Potassium 4.4 mmol/L (3.5-5.1); Sodium 138 mmol/L (135-145); Total Bilirubin 0.5 mg/dl (0.2-1.3); Total Protein 7.2 g/dl (6.3-8.2); eGFR > 60.00
[2023-12-26 04:22] LABS: Beta-2-Microglobulin 1.7 mg/L (<=3.0)
[2023-12-26 22:35] LABS: Alpha 2 Globulin 0.81 g/dL (0.48-1.05); Free Kappa Light Chains,Quant 9.24 mg/L (3.30-19.40); Free Lambda Light Chains,Quant 7.53 mg/L (5.71-26.30); IgA 135 mg/dL (68-408); IgG 928 mg/dL (768-1632); IgM 134 mg/dL (35-263); Immunofixation Electrophoresis IFE Done; Kappa/Lambda Fr Light Ratio 1.23 (0.26-1.65); Total Protein-Electrophoresis 7.1 g/dL (6.3-8.2)
== END ==
LOC: OIDL 08:46
PROVIDERS: ATTENDING PHYSICIAN Internal Medicine Hematology & Oncology; FAMILY PHYSICIAN Family Medicine
DX: C90.00 Multiple myeloma not having achieved remission (principal); G89.3 Neoplasm related pain (acute) (chronic); D80.1 Nonfamilial hypogammaglobulinemia; C90.01 Multiple myeloma in remission; R58 Hemorrhage, not elsewhere classified; R79.9 Abnormal finding of blood chemistry, unspecified; R79.1 Abnormal coagulation profile; Z86.2 Personal history of diseases of the blood and blood-forming organs and certain disorders involving the immune mechanism
CPT/HCPCS: 36415; 80053; 82232; 82784; 83521; 84155; 84165; 85025; 86334

== ENCOUNTER → 2024-01-08 11:41 | Outpatient (REF) | payer MEDICARE, SELFPAY ==
[2024-01-08 13:36] LABS: % Basophils 2.3 % (0-2); % Eosinophils 2.8 % (0-6); % Immature Granulocytes 0.2 % (0-0.5); % Lymphocytes 32.5 % (20.5-51.1); % Monocytes 9.9 % (1.7-9.3); % Neutrophils 52.3 % (42.2-75.2); Absolute Basophils 0.1 10^3/uL (0-0.2); Absolute Eosinophils 0.1 10^3/uL (0-0.7); Absolute Lymphocytes 1.4 10^3/uL (1.2-3.4); Absolute Monocytes 0.4 10^3/uL (0.1-0.6); Absolute Neutrophils 2.3 10^3/uL (1.4-6.5); Hematocrit 37.4 % (37.0-47.0); Hemoglobin 12.8 g/dL (12.0-16.0); Mean Corp Hgb Conc. 34.2 g/dL (33.0-37.0); Mean Corpuscular Hgb 32.7 pg (27.0-31.0); Mean Corpuscular Volume 95.7 fL (81.0-99.0); Mean Platelet Volume 10.5 fL (7.4-10.4); Nucleated Red Blood Cells % 0 %; Platelet Count 346 10^3/uL (130-400); Red Blood Cell Count 3.91 10^6/uL (4.20-5.40); Red Cell Dist. Width 14.1 % (11.5-14.5); White Blood Cell Count 4.3 10^3/uL (4.8-10.8)
[2024-01-08 14:10] LABS: ALT (SGPT) 21 U/L (0-35); AST (SGOT) 33 U/L (14-36); Albumin 4.4 g/dl (3.5-5.0); Alkaline Phosphatase 94 U/L (38-126); Blood Urea Nitrogen 18 mg/dl (7-17); Carbon Dioxide 29 mmol/L (22-30); Chloride 101 mmol/L (98-107); Glucose 92 mg/dl (70-99); HDL Cholesterol 109 mg/dl; LDL Cholesterol, Calculated 89 mg/dl; Sodium 140 mmol/L (135-145); Total Bilirubin 0.6 mg/dl (0.2-1.3); Total Cholesterol 214 mg/dl (50-199); Total Protein 7.2 g/dl (6.3-8.2); Triglyceride 81 mg/dl (10-149); Very Low Density Lipoprotein 16 mg/dl (0-30); eGFR > 60.00
[2024-01-08 14:30] LABS: Vitamin D, 25-OH*** 70.4 ng/mL (30-80)
[2024-01-08 14:37] LABS: TSH Reflex To Free T4 0.21 uIU/ml (0.47-4.68)
[2024-01-08 15:07] LABS: Free T4 0.69 ng/dl (0.78-2.19)
== END ==
LOC: REG 11:41
PROVIDERS: ATTENDING PHYSICIAN Family Medicine
DX: Z13.1 Encounter for screening for diabetes mellitus (principal); C90.01 Multiple myeloma in remission; C90.00 Multiple myeloma not having achieved remission; E78.00 Pure hypercholesterolemia, unspecified; Z13.29 Encounter for screening for other suspected endocrine disorder; E55.9 Vitamin D deficiency, unspecified
CPT/HCPCS: 36415; 80053; 80061; 82306; 84439; 84443; 85025

== ENCOUNTER → 2024-01-21 08:49 | Outpatient (REF) | payer MEDICARE, SELFPAY ==
[2024-01-21 09:02] LABS: % Basophils 1.3 % (0-2); % Eosinophils 2.7 % (0-6); % Immature Granulocytes 0.2 % (0-0.5); % Lymphocytes 33.5 % (20.5-51.1); % Monocytes 11.7 % (1.7-9.3); % Neutrophils 50.6 % (42.2-75.2); Absolute Basophils 0.1 10^3/uL (0-0.2); Absolute Eosinophils 0.1 10^3/uL (0-0.7); Absolute Lymphocytes 1.6 10^3/uL (1.2-3.4); Absolute Monocytes 0.6 10^3/uL (0.1-0.6); Absolute Neutrophils 2.4 10^3/uL (1.4-6.5); Hematocrit 37.9 % (37.0-47.0); Hemoglobin 12.8 g/dL (12.0-16.0); Mean Corp Hgb Conc. 33.8 g/dL (33.0-37.0); Mean Corpuscular Hgb 33.1 pg (27.0-31.0); Mean Corpuscular Volume 97.9 fL (81.0-99.0); Mean Platelet Volume 9.9 fL (7.4-10.4); Platelet Count 311 10^3/uL (130-400); Red Blood Cell Count 3.87 10^6/uL (4.20-5.40); Red Cell Dist. Width 13.8 % (11.5-14.5); White Blood Cell Count 4.8 10^3/uL (4.8-10.8)
[2024-01-21 10:16] LABS: ALT (SGPT) 20 U/L (0-35); AST (SGOT) 30 U/L (14-36); Albumin 4.4 g/dl (3.5-5.0); Alkaline Phosphatase 85 U/L (38-126); Blood Urea Nitrogen 14 mg/dl (7-17); Calcium 9.9 mg/dl (8.4-10.2); Carbon Dioxide 27 mmol/L (22-30); Chloride 104 mmol/L (98-107); Glucose 89 mg/dl (70-99); Potassium 4.4 mmol/L (3.5-5.1); Sodium 141 mmol/L (135-145); Total Bilirubin 0.5 mg/dl (0.2-1.3); Total Protein 7.1 g/dl (6.3-8.2); eGFR > 60.00
[2024-01-24 22:18] LABS: Albumin 4.14 g/dL (3.75-5.01); Alpha 1 Globulin 0.26 g/dL (0.19-0.46); Alpha 2 Globulin 0.73 g/dL (0.48-1.05); Free Kappa Light Chains,Quant 11.74 mg/L (3.30-19.40); Free Lambda Light Chains,Quant 5.18 mg/L (5.71-26.30); IgA 148 mg/dL (68-408); IgG 1143 mg/dL (768-1632); IgM 129 mg/dL (35-263); Immunofixation Electrophoresis IFE Done; Kappa/Lambda Fr Light Ratio 2.27 (0.26-1.65)
== END ==
LOC: OIDL 08:49
PROVIDERS: ATTENDING PHYSICIAN Internal Medicine Hematology & Oncology; FAMILY PHYSICIAN Family Medicine
DX: C90.00 Multiple myeloma not having achieved remission (principal)
CPT/HCPCS: 36415; 80053; 82784; 83521; 84155; 84165; 85025; 86334

== ENCOUNTER → 2024-02-09 12:14 | Outpatient (REF) | payer MEDICARE, SELFPAY | LOC: HWWDC 12:14 | PROVIDERS: ATTENDING PHYSICIAN Family Medicine | DX: Z12.31 Encounter for screening mammogram for malignant neoplasm of breast (principal) | CPT/HCPCS: 77063; 77067 ==

== ENCOUNTER → 2024-02-18 09:39 | Outpatient (REF) | payer MEDICARE, SELFPAY ==
[2024-02-18 10:09] LABS: % Basophils 1.6 % (0-2); % Eosinophils 2.6 % (0-6); % Lymphocytes 34.8 % (20.5-51.1); % Monocytes 10.4 % (1.7-9.3); % Neutrophils 50.6 % (42.2-75.2); Absolute Basophils 0.1 10^3/uL (0-0.2); Absolute Eosinophils 0.1 10^3/uL (0-0.7); Absolute Lymphocytes 1.3 10^3/uL (1.2-3.4); Absolute Monocytes 0.4 10^3/uL (0.1-0.6); Hematocrit 40.3 % (37.0-47.0); Hemoglobin 13.6 g/dL (12.0-16.0); Mean Corp Hgb Conc. 33.7 g/dL (33.0-37.0); Mean Corpuscular Hgb 32.8 pg (27.0-31.0); Mean Corpuscular Volume 97.1 fL (81.0-99.0); Mean Platelet Volume 10.4 fL (7.4-10.4); Platelet Count 263 10^3/uL (130-400); Red Blood Cell Count 4.15 10^6/uL (4.20-5.40); Red Cell Dist. Width 13.5 % (11.5-14.5); White Blood Cell Count 3.9 10^3/uL (4.8-10.8)
[2024-02-18 11:42] LABS: ALT (SGPT) 30 U/L (0-35); AST (SGOT) 38 U/L (14-36); Albumin 4.7 g/dl (3.5-5.0); Alkaline Phosphatase 88 U/L (38-126); Blood Urea Nitrogen 14 mg/dl (7-17); Calcium 10.3 mg/dl (8.4-10.2); Carbon Dioxide 25 mmol/L (22-30); Chloride 104 mmol/L (98-107); Glucose 100 mg/dl (70-99); Potassium 4.3 mmol/L (3.5-5.1); Sodium 141 mmol/L (135-145); Total Bilirubin 0.6 mg/dl (0.2-1.3); Total Protein 7.6 g/dl (6.3-8.2); eGFR > 60.00
[2024-02-18 12:25] LABS: TSH Reflex To Free T4 0.16 uIU/ml (0.47-4.68)
[2024-02-18 12:53] LABS: Free T4 0.74 ng/dl (0.78-2.19)
[2024-02-19 13:53] LABS: Thyroglobulin Antibodies 4.3 IU/mL (0.0-4.0); Thyroid Peroxidase Ab (TPO) 12.7 IU/mL (0.0-9.0)
[2024-02-21 10:32] LABS: Albumin 4.35 g/dL (3.75-5.01); Alpha 1 Globulin 0.27 g/dL (0.19-0.46); Alpha 2 Globulin 0.72 g/dL (0.48-1.05); Free Kappa Light Chains,Quant 10.91 mg/L (3.30-19.40); Free Lambda Light Chains,Quant 6.38 mg/L (5.71-26.30); IgA 144 mg/dL (68-408); IgG 1189 mg/dL (768-1632); IgM 145 mg/dL (35-263); Immunofixation Electrophoresis IFE Done; Kappa/Lambda Fr Light Ratio 1.71 (0.26-1.65); Total Protein-Electrophoresis 7.3 g/dL (6.3-8.2)
== END ==
LOC: OIDL 09:39
PROVIDERS: ATTENDING PHYSICIAN Internal Medicine Hematology & Oncology; FAMILY PHYSICIAN Family Medicine
DX: C90.00 Multiple myeloma not having achieved remission (principal)
CPT/HCPCS: 80053; 82784; 83521; 84155; 84165; 84439; 84443; 85025; 86334; 86376; 86800

== ENCOUNTER → 2024-03-17 08:30 | Outpatient (REF) | payer MEDICARE, SELFPAY ==
[2024-03-17 08:42] LABS: % Eosinophils 3.2 % (0-6); % Immature Granulocytes 0.2 % (0-0.5); % Lymphocytes 33.7 % (20.5-51.1); % Monocytes 9.3 % (1.7-9.3); % Neutrophils 51.6 % (42.2-75.2); Absolute Basophils 0.1 10^3/uL (0-0.2); Absolute Eosinophils 0.1 10^3/uL (0-0.7); Absolute Lymphocytes 1.4 10^3/uL (1.2-3.4); Absolute Monocytes 0.4 10^3/uL (0.1-0.6); Absolute Neutrophils 2.1 10^3/uL (1.4-6.5); Hematocrit 39.5 % (37.0-47.0); Hemoglobin 13.1 g/dL (12.0-16.0); Mean Corp Hgb Conc. 33.2 g/dL (33.0-37.0); Mean Corpuscular Hgb 32.3 pg (27.0-31.0); Mean Corpuscular Volume 97.5 fL (81.0-99.0); Mean Platelet Volume 10.2 fL (7.4-10.4); Platelet Count 319 10^3/uL (130-400); Red Blood Cell Count 4.05 10^6/uL (4.20-5.40); Red Cell Dist. Width 13.3 % (11.5-14.5); White Blood Cell Count 4.1 10^3/uL (4.8-10.8)
[2024-03-17 10:22] LABS: ALT (SGPT) 24 U/L (0-35); AST (SGOT) 34 U/L (14-36); Albumin 4.5 g/dl (3.5-5.0); Alkaline Phosphatase 81 U/L (38-126); Blood Urea Nitrogen 13 mg/dl (7-17); Calcium 10.4 mg/dl (8.4-10.2); Carbon Dioxide 28 mmol/L (22-30); Chloride 102 mmol/L (98-107); Glucose 82 mg/dl (70-99); Potassium 4.4 mmol/L (3.5-5.1); Sodium 142 mmol/L (135-145); Total Bilirubin 0.4 mg/dl (0.2-1.3); Total Protein 7.3 g/dl (6.3-8.2); eGFR > 60.00
[2024-03-19 02:39] LABS: Beta-2-Microglobulin 1.7 mg/L (<=3.0)
[2024-03-20 13:03] LABS: Albumin 4.24 g/dL (3.75-5.01); Alpha 1 Globulin 0.28 g/dL (0.19-0.46); Alpha 2 Globulin 0.67 g/dL (0.48-1.05); Free Kappa Light Chains,Quant 11.59 mg/L (3.30-19.40); Free Lambda Light Chains,Quant 7.31 mg/L (5.71-26.30); IgA 147 mg/dL (68-408); IgG 1157 mg/dL (768-1632); IgM 126 mg/dL (35-263); Immunofixation Electrophoresis IFE Done; Kappa/Lambda Fr Light Ratio 1.59 (0.26-1.65); Total Protein-Electrophoresis 7.1 g/dL (6.3-8.2)
== END ==
LOC: OIDL 08:30
PROVIDERS: ATTENDING PHYSICIAN Internal Medicine Hematology & Oncology; FAMILY PHYSICIAN Family Medicine
DX: C90.00 Multiple myeloma not having achieved remission (principal)
CPT/HCPCS: 36415; 80053; 82232; 82784; 83521; 84155; 84165; 85025; 86334

== ENCOUNTER → 2024-04-14 15:53 | Outpatient (REF) | payer MEDICARE, SELFPAY ==
[2024-04-14 11:00] LABS: % Basophils 1.2 % (0-2); % Eosinophils 0.9 % (0-6); % Immature Granulocytes 0.2 % (0-0.5); % Lymphocytes 21.4 % (20.5-51.1); % Neutrophils 68.3 % (42.2-75.2); Absolute Basophils 0.1 10^3/uL (0-0.2); Absolute Eosinophils 0.1 10^3/uL (0-0.7); Absolute Lymphocytes 1.2 10^3/uL (1.2-3.4); Absolute Monocytes 0.5 10^3/uL (0.1-0.6); Absolute Neutrophils 3.8 10^3/uL (1.4-6.5); Hematocrit 37.2 % (37.0-47.0); Hemoglobin 12.6 g/dL (12.0-16.0); Mean Corp Hgb Conc. 33.9 g/dL (33.0-37.0); Mean Corpuscular Hgb 33.2 pg (27.0-31.0); Mean Corpuscular Volume 97.9 fL (81.0-99.0); Mean Platelet Volume 11.1 fL (7.4-10.4); Nucleated Red Blood Cells % 0 %; Platelet Count 295 10^3/uL (130-400); Red Cell Dist. Width 13.6 % (11.5-14.5); White Blood Cell Count 5.6 10^3/uL (4.8-10.8)
[2024-04-14 11:14] LABS: ALT (SGPT) 28 U/L (0-35); AST (SGOT) 33 U/L (14-36); Albumin 4.5 g/dl (3.5-5.0); Alkaline Phosphatase 97 U/L (38-126); Blood Urea Nitrogen 16 mg/dl (7-17); Calcium 10.2 mg/dl (8.4-10.2); Carbon Dioxide 26 mmol/L (22-30); Chloride 105 mmol/L (98-107); Glucose 105 mg/dl (70-99); Potassium 4.2 mmol/L (3.5-5.1); Sodium 139 mmol/L (135-145); Total Bilirubin 0.4 mg/dl (0.2-1.3); Total Protein 7.4 g/dl (6.3-8.2); eGFR > 60.00
[2024-04-16 13:59] LABS: Beta-2-Microglobulin 1.4 mg/L (<=3.0)
== END ==
LOC: OIDL 15:53
PROVIDERS: ATTENDING PHYSICIAN Internal Medicine Hematology & Oncology
DX: C90.00 Multiple myeloma not having achieved remission (principal)
CPT/HCPCS: 80053; 82232; 82784; 83521; 84155; 84165; 85025; 86334

== ENCOUNTER → 2024-05-12 13:08 | Outpatient (REF) | payer MEDICARE, SELFPAY ==
[2024-05-12 10:52] LABS: % Basophils 1.1 % (0-2); % Eosinophils 9.6 % (0-6); % Immature Granulocytes 0.2 % (0-0.5); % Lymphocytes 26.1 % (20.5-51.1); % Monocytes 9.6 % (1.7-9.3); % Neutrophils 53.4 % (42.2-75.2); Absolute Basophils 0.1 10^3/uL (0-0.2); Absolute Eosinophils 0.5 10^3/uL (0-0.7); Absolute Lymphocytes 1.4 10^3/uL (1.2-3.4); Absolute Monocytes 0.5 10^3/uL (0.1-0.6); Absolute Neutrophils 2.8 10^3/uL (1.4-6.5); Hematocrit 41.6 % (37.0-47.0); Hemoglobin 13.6 g/dL (12.0-16.0); Mean Corp Hgb Conc. 32.7 g/dL (33.0-37.0); Mean Corpuscular Hgb 32.9 pg (27.0-31.0); Mean Corpuscular Volume 100.7 fL (81.0-99.0); Mean Platelet Volume 10.1 fL (7.4-10.4); Platelet Count 267 10^3/uL (130-400); Red Blood Cell Count 4.13 10^6/uL (4.20-5.40); Red Cell Dist. Width 14.1 % (11.5-14.5); White Blood Cell Count 5.2 10^3/uL (4.8-10.8)
[2024-05-12 15:07] LABS: Urine Albumin Negative (Neg - Trace); Urine Bilirubin Negative (Negative); Urine Character Clear (Clear); Urine Color Yellow; Urine Glucose 1+ (Negative); Urine Ketone Negative (Negative); Urine Leukocyte Negative (Negative); Urine Nitrite Negative (Negative); Urine Occult Blood Negative (Negative); Urine Urobilinogen Negative (Neg - 1+)
== END ==
LOC: OIDL 13:08
PROVIDERS: ATTENDING PHYSICIAN Internal Medicine Hematology & Oncology
DX: C90.00 Multiple myeloma not having achieved remission (principal); R31.9 Hematuria, unspecified
CPT/HCPCS: 81003; 85025; 87086

== ENCOUNTER → 2024-05-12 14:57 | Outpatient (REF) | payer MEDICARE, SELFPAY | LOC: HWRAD 14:57 | PROVIDERS: ATTENDING PHYSICIAN Internal Medicine Hematology & Oncology; FAMILY PHYSICIAN Family Medicine | DX: C90.00 Multiple myeloma not having achieved remission (principal); R31.9 Hematuria, unspecified | CPT/HCPCS: 74176; 81003; 85025; 87086 ==

== ENCOUNTER 2024-05-15 10:07 | Emergency (ER) | payer MEDICARE, SELFPAY ==
[2024-05-15 10:13] VITALS: BP 205/87
[2024-05-15 10:32] LABS: % Basophils 2.2 % (0-2); % Immature Granulocytes 0.2 % (0-0.5); % Lymphocytes 28.3 % (20.5-51.1); % Monocytes 9.8 % (1.7-9.3); % Neutrophils 50.5 % (42.2-75.2); Absolute Basophils 0.1 10^3/uL (0-0.2); Absolute Eosinophils 0.5 10^3/uL (0-0.7); Absolute Lymphocytes 1.4 10^3/uL (1.2-3.4); Absolute Monocytes 0.5 10^3/uL (0.1-0.6); Absolute Neutrophils 2.5 10^3/uL (1.4-6.5); Hematocrit 40.7 % (37.0-47.0); Hemoglobin 13.9 g/dL (12.0-16.0); Mean Corp Hgb Conc. 34.2 g/dL (33.0-37.0); Mean Corpuscular Hgb 32.9 pg (27.0-31.0); Mean Corpuscular Volume 96.4 fL (81.0-99.0); Nucleated Red Blood Cells % 0 %; Platelet Count 284 10^3/uL (130-400); Red Blood Cell Count 4.22 10^6/uL (4.20-5.40)
[2024-05-15 10:40] LABS: APTT 26.4 Sec (23.4-35.0); PT 12.5 Sec (11.4-14.6)
[2024-05-15 10:43] LABS: ALT (SGPT) 35 U/L (0-35); AST (SGOT) 36 U/L (14-36); Albumin 4.4 g/dl (3.5-5.0); Alkaline Phosphatase 113 U/L (38-126); Blood Urea Nitrogen 18 mg/dl (7-17); Calcium 10.2 mg/dl (8.4-10.2); Carbon Dioxide 29 mmol/L (22-30); Chloride 100 mmol/L (98-107); Glucose 104 mg/dl (70-99); Potassium 4.1 mmol/L (3.5-5.1); Sodium 138 mmol/L (135-145); Total Bilirubin 0.6 mg/dl (0.2-1.3); Total Protein 8.1 g/dl (6.3-8.2); eGFR 51.75
[2024-05-15 10:53] LABS: Troponin I < 0.012 ng/ml
[2024-05-15 10:55] VITALS: BP 159/62
[2024-05-15 11:00] VITALS: BP 149/71
[2024-05-15 11:21] VITALS: BMI 24.7
--- NOTE | 2024-05-15 11:28 | ED.GENMED ---
History of Present Illness
General
Chief Complaint: Chest Pain
Source: patient
Exam Limitations: none
Time Seen by Provider: 05/15/24 10:53
Nursing documentation reviewed up to this point in time: agreed with
History of Present Illness
History of Present Illness:
79-year-old female history of myeloma, social alcohol drinker presents with severe chest pain while doing laundry at 8:20 AM lasted about 25 minutes front to back of her chest into her jaw, nausea without vomiting, no fever chills no prior episodes
Past History
Past History
ED Past Medical History: Other (Diverticulitis, IBS) and Other (Multiple myeloma)
ED Past Surgical History: Bowel resection (Sigmoid resection), Orthopedic and Other
Patient has exhibited threatening behavior?: No
Social History
Tobacco: Non-smoker
Alcohol: Occasional
Drug: None
Personal:
Living: alone
Employment: Retired
Family History
Family History: Other (Mother with coronary artery disease sister with breast cancer)
Review of Systems
Review of Systems
All Other Systems: Not applicable
Constitutional: Denies fever or fatigue
Respiratory: Denies cough
Cardiac: Reports chest pain
ABD/GI: Reports nausea; Denies vomiting or diarrhea
Phy Exam
Physical Exam
Physical Exam:
Physical Exam
General: no apparent distress, not acutely ill
Neck: No jaundice
Heart: s1/s2 regular rate and rhythm, no murmur. equal radial pulses.
Lungs: no acute respiratory distress. clear bilaterally
Abdomen: Soft minimal epigastric
Neuro: alert and oriented. no focal neurological deficits
Skin: no rash
Psychiatric: well kept. interactive and cooperative
Extremities: no edema.
Scores
Heart Score for Chest Pain Patients
STEMI patient?: No
History: Slightly or Non-Suspicious
ECG: Normal
Age: >/= 65 years
Risk Factors: 1 or 2 Risk Factors
Troponin: </= Normal Limit
Heart Score for Chest Pain Patients: 3
Heart Score Risk: 2.5% MACE over next 6 weeks
Course
Orders/Labs/Results
Orders:
Orders
05/15/24
Electrocardiogram (*1) Stat
Reason for Study: Chest Pain
05/15/24 10:07
EKG [Electrocardiogram (*1)] Urgent
Reason for Study: Chest Pain
05/15/24 10:08
EKG- Treatment ONCE
05/15/24 10:21
Complete Blood Count/With Diff Urgent
Comprehensive Metabolic Panel Urgent
PT/INR [Prothrombin Time] Urgent
PTT Urgent
Troponin I Urgent
05/15/24 11:13
CT Chest Angio W/wo Iv Contras Urgent
Comment:
Reason For Exam: sevevre pain
0.9% Sodium Chloride 1000 ml [Nss] 1,000 ml IV BOLUS
HYDROmorphone [Dilaudid] 0.5 mg IV NOW STA
Ondansetron Injectable [Zofran] 4 mg IV NOW STA
05/15/24 13:13
Troponin I Urgent
Abnormal Lab Results
05/15/24
10:21
MCH 32.9 H pg
(27.0-31.0)
Monocytes % 9.8 H %
(1.7-9.3)
Eosinophils % 9.0 H %
(0-6)
Basophils % 2.2 H %
(0-2)
BUN 18 H mg/dl
(7-17)
Creatinine 1.1 H mg/dL
(0.6-1.0)
Glucose 104 H mg/dl
(70-99)
05/15/24 10:21
05/15/24 10:21
Vital Signs
Initial and Last Documented VS:
Initial Vital Signs
Temp Pulse Resp BP Pulse Ox
98.1 F 60 16 205/87 99
05/15/24 10:13 05/15/24 10:13 05/15/24 10:13 05/15/24 10:13 05/15/24 10:13
Last Documented Vital Signs
Temp Pulse Resp BP Pulse Ox
98.1 F 59 18 174/79 98
05/15/24 10:13 05/15/24 14:30 05/15/24 14:30 05/15/24 14:00 05/15/24 14:30
MDM/Problems Addressed
Differential Diagnosis Includes:
Thoracic dissection, ACS PE pneumothorax gastritis esophagitis myeloma pain
MDM/Problems Addressed:
Chest pain
Chronic conditions affecting care: HTN and Cancer
Acute Exacerbation and/or Progression of Chronic Illness: HTN and Cancer
*Radiology
Radiology exam reviewed: radiology read reviewed
*Pulse Oximetry
Patient hypoxic: no
*EKG
Interpretation: normal
Comparison EKG: no comparison EKG present
Heart Rate: 78
Rate: normal
Rhythm: sinus
Ischemia: no ischemia
*Oceanography Teacher Interpretation
Rate: normal
Interpretation: normal
Heart Rate: 70
Rhythm: sinus
*Critical Care Note
Total Time (30-74mins, 75-104mins- exclusive of procedures): Not Applicable
Update Note
Update Note:
Update CT angio report noted does have compression fractures previous myeloma likely explains symptoms, will check second troponin
Update reviewed CAT scan report with patient she does not believe that her symptoms are related to myeloma or reflux though she does have chronic pain in her low back, states her myeloma is not active, second troponin is pending second EKG noted
Update second troponin noted
ED Attending Note
-
Portions of this chart may have been created with voice recognition software.� Occasional wrong word or��sound alike� substitutions may have occurred due to the inherent limitations of voice recognition software.
Discharge Plan
Departure
Patient Disposition: Home (Routine Discharge)
Date of Disposition: 05/15/24
Time of Disposition: 14:45
Patient with high blood pressure during this ER visit?: No
Condition: Good
Covid-19: Not Applicable
Discharge Problem:
Chest pain
Instructions: Chest pain in adults - ED discharge instructions, Chest Pain PCP Follow Up
Prescriptions:
No Action
Refresh Classic (PF) 10 DROPS dropperette
1 drops BOTH EYES DAILYPRN PRN (Reason: dry eyes)
famotidine 40 MG tablet
40 mg PO DAILY
milk thistle 500 MG capsule
500 mg PO DAILY
calcium carbonate [Oyster Shell Calcium 500] 500 MG tablet
1,500 mg PO
ascorbic acid (vitamin C) [Vitamin C] 500 MG tablet
1,000 mg PO DAILY
gabapentin 300 MG capsule
400 mg PO HS
cranberry 1,000 MG capsule
1,000 mg PO DAILY
cholecalciferol (vitamin D3) 1,000 UNITS tablet
5,000 units PO DAILY
multivitamin with folic acid [Tab-A-Jacquie] 1 TABLET tablet
1 tab PO DAILY
alprazolam 0.25 MG tablet
0.25 mg PO DAILYPRN PRN (Reason: anxiety)
Patient Comments:
09/09/21: last filled 06/19/21, [facility]
polyethylene glycol 3350 17 GRAMS powder in packet
17 grams PO DAILYPRN PRN (Reason: constipation)
cetirizine [Zyrtec] 10 mg Tablet
10 mg PO HS
montelukast [Singulair] 10 mg Tablet
10 mg PO HS
Referrals:
Chalino Garnica Jr., DO [Family Provider] - Next open appointment
Activity Restrictions/Additional Instructions:
Follow-up with your primary care provider
Interventions
Interventions:
*Risk Screen - Suicide Last Done: 05/15/24 11:22
*General Assessment Last Done: 05/15/24 11:22
*Neglect/Abuse Screening Last Done: 05/15/24 11:22
ED- Fall Risk Assessment Last Done: 05/15/24 11:26
*ED COVID-19 Vaccine History Last Done: 05/15/24 11:22
*Nursing Disposition Last Done: 05/15/24 15:41
ED- Cardiac Assessment Last Done: 05/15/24 11:26
Discharge Date and Time
Discharge Date/Time: 05/15/24 15:42
Print Language: NORWEGIAN
[2024-05-15] MEDS: ZOFRAN 4 MG IV (11:37)
[2024-05-15] MEDS: DILAUDID 0.5 MG IV (11:38)
[2024-05-15] MEDS: NSS 1000 IV (11:39)
[2024-05-15 12:10] VITALS: BP 177/75
[2024-05-15 13:00] VITALS: BP 171/85
[2024-05-15 13:46] LABS: Troponin I < 0.012 ng/ml
[2024-05-15 14:00] VITALS: BP 174/79
== END 2024-05-15 15:42 | disposition home or self-care (01) ==
LOC: EMR 10:07
PROVIDERS: Emergency Medicine; EMERGENCY PHYSICIAN Emergency Medicine; FAMILY PHYSICIAN Family Medicine
DX: R07.89 Other chest pain (principal); I10 Essential (primary) hypertension
CPT/HCPCS: 99285; 96374; 96375; 96361; 71275; 80053; 84484; 85025; 85610; 85730; 93005; Q9967

== ENCOUNTER → 2024-05-18 12:08 | Outpatient (REF) | payer MEDICARE, SELFPAY ==
[2024-05-18 18:53] LABS: Urine Albumin Trace (Neg - Trace); Urine Bilirubin Negative (Negative); Urine Character Clear (Clear); Urine Color Yellow; Urine Glucose Negative (Negative); Urine Ketone Negative (Negative); Urine Leukocyte Negative (Negative); Urine Nitrite Negative (Negative); Urine Occult Blood Negative (Negative); Urine Urobilinogen Negative (Neg - 1+)
== END ==
LOC: CLAB 12:08
PROVIDERS: ATTENDING PHYSICIAN Surgery
DX: N30.91 Cystitis, unspecified with hematuria (principal); N39.0 Urinary tract infection, site not specified
CPT/HCPCS: 81003

== ENCOUNTER → 2024-06-09 08:41 | Outpatient (REF) | payer MEDICARE, SELFPAY ==
[2024-06-09 09:04] LABS: % Basophils 0.7 % (0-2); % Eosinophils 0.7 % (0-6); % Immature Granulocytes 0.3 % (0-0.5); % Monocytes 9.5 % (1.7-9.3); % Neutrophils 65.8 % (42.2-75.2); Absolute Lymphocytes 1.4 10^3/uL (1.2-3.4); Absolute Monocytes 0.6 10^3/uL (0.1-0.6); Hematocrit 39.4 % (37.0-47.0); Hemoglobin 13.1 g/dL (12.0-16.0); Mean Corp Hgb Conc. 33.2 g/dL (33.0-37.0); Mean Corpuscular Hgb 32.8 pg (27.0-31.0); Mean Corpuscular Volume 98.5 fL (81.0-99.0); Mean Platelet Volume 10.1 fL (7.4-10.4); Platelet Count 329 10^3/uL (130-400); Red Cell Dist. Width 13.6 % (11.5-14.5)
[2024-06-09 11:01] LABS: ALT (SGPT) 25 U/L (0-35); AST (SGOT) 31 U/L (14-36); Albumin 4.8 g/dl (3.5-5.0); Alkaline Phosphatase 97 U/L (38-126); Blood Urea Nitrogen 17 mg/dl (7-17); Calcium 9.9 mg/dl (8.4-10.2); Carbon Dioxide 27 mmol/L (22-30); Chloride 102 mmol/L (98-107); Glucose 108 mg/dl (70-99); Potassium 4.4 mmol/L (3.5-5.1); Sodium 138 mmol/L (135-145); Total Bilirubin 0.8 mg/dl (0.2-1.3); Total Protein 7.7 g/dl (6.3-8.2); eGFR > 60.00
[2024-06-10 22:59] LABS: Beta-2-Microglobulin 1.6 mg/L (<=3.0)
== END ==
LOC: OIDL 08:41
PROVIDERS: ATTENDING PHYSICIAN Nurse Practitioner Acute Care
DX: C90.00 Multiple myeloma not having achieved remission (principal); C90.01 Multiple myeloma in remission; G89.3 Neoplasm related pain (acute) (chronic); D80.1 Nonfamilial hypogammaglobulinemia; R79.0 Abnormal level of blood mineral
CPT/HCPCS: 36415; 80053; 82232; 82784; 83521; 84155; 84165; 85025; 86334

== ENCOUNTER → 2024-07-07 10:51 | Outpatient (REF) | payer MEDICARE, SELFPAY | LOC: RAD 10:51 | PROVIDERS: ATTENDING PHYSICIAN Nurse Practitioner Adult Health; FAMILY PHYSICIAN Family Medicine | DX: C90.01 Multiple myeloma in remission (principal); C90.00 Multiple myeloma not having achieved remission; G89.3 Neoplasm related pain (acute) (chronic); D80.1 Nonfamilial hypogammaglobulinemia; R58 Hemorrhage, not elsewhere classified; R79.1 Abnormal coagulation profile; R79.9 Abnormal finding of blood chemistry, unspecified; Z86.2 Personal history of diseases of the blood and blood-forming organs and certain disorders involving the immune mechanism | CPT/HCPCS: 36415; 71046; 80053; 82232; 82784; 83521; 84155; 84165; 85025; 86334 ==

== ENCOUNTER → 2024-08-03 13:42 | Outpatient (REF) | payer MEDICARE, SELFPAY ==
[2024-08-03 14:48] LABS: % Basophils 1.1 % (0-2); % Eosinophils 1.3 % (0-6); % Immature Granulocytes 0.2 % (0-0.5); % Monocytes 8.3 % (1.7-9.3); % Neutrophils 69.1 % (42.2-75.2); Absolute Basophils 0.1 10^3/uL (0-0.2); Absolute Eosinophils 0.1 10^3/uL (0-0.7); Absolute Lymphocytes 1.2 10^3/uL (1.2-3.4); Absolute Monocytes 0.5 10^3/uL (0.1-0.6); Absolute Neutrophils 4.3 10^3/uL (1.4-6.5); Hematocrit 42.4 % (37.0-47.0); Hemoglobin 14.5 g/dL (12.0-16.0); Mean Corp Hgb Conc. 34.2 g/dL (33.0-37.0); Mean Corpuscular Volume 99.3 fL (81.0-99.0); Nucleated Red Blood Cells % 0 %; Platelet Count 346 10^3/uL (130-400); Red Blood Cell Count 4.27 10^6/uL (4.20-5.40); Red Cell Dist. Width 13.6 % (11.5-14.5); White Blood Cell Count 6.2 10^3/uL (4.8-10.8)
[2024-08-03 14:59] LABS: ALT (SGPT) 27 U/L (0-35); AST (SGOT) 34 U/L (14-36); Alkaline Phosphatase 75 U/L (38-126); Blood Urea Nitrogen 11 mg/dl (7-17); Calcium 10.7 mg/dl (8.4-10.2); Carbon Dioxide 30 mmol/L (22-30); Chloride 103 mmol/L (98-107); Glucose 97 mg/dl (70-99); Iron 123 ug/dl (37-170); Potassium 4.3 mmol/L (3.5-5.1); Sodium 140 mmol/L (135-145); Total Bilirubin 0.6 mg/dl (0.2-1.3); Total Protein 7.9 g/dl (6.3-8.2); eGFR > 60.00
[2024-08-03 15:03] LABS: C-Reactive Protein < 5.00 mg/L (0.0-10.00)
[2024-08-03 15:08] LABS: Percent Saturation 34 % (20-50); Total Iron Binding Capacity 354 ug/dl (265-497)
[2024-08-03 15:30] LABS: TSH Reflex To Free T4 < 0.02 uIU/ml (0.47-4.68)
[2024-08-03 15:34] LABS: Ferritin 27.7 ng/ml (11.1-264.0)
[2024-08-03 15:45] LABS: Erythrocyte Sed Rate 6 mm/hour (0-20)
[2024-08-03 16:40] LABS: Free T4 0.97 ng/dl (0.78-2.19)
[2024-08-06 02:54] LABS: Beta-2-Microglobulin 1.7 mg/L (<=3.0)
== END ==
LOC: REG 13:42
PROVIDERS: ATTENDING PHYSICIAN Nurse Practitioner Adult Health; FAMILY PHYSICIAN Family Medicine; OTHER PHYSICIAN Internal Medicine Hematology & Oncology; REFERRING PHYSICIAN Internal Medicine Hematology & Oncology
DX: C90.00 Multiple myeloma not having achieved remission (principal); C90.01 Multiple myeloma in remission; G89.3 Neoplasm related pain (acute) (chronic); D80.1 Nonfamilial hypogammaglobulinemia; R58 Hemorrhage, not elsewhere classified; R79.1 Abnormal coagulation profile; R79.9 Abnormal finding of blood chemistry, unspecified; Z86.2 Personal history of diseases of the blood and blood-forming organs and certain disorders involving the immune mechanism; I10 Essential (primary) hypertension
CPT/HCPCS: 36415; 80053; 82232; 82728; 82784; 83521; 83540; 83550; 83735; 84155; 84165; 84439; 84443; 85025; 85652; 86140; 86334

== ENCOUNTER → 2024-08-11 14:09 | Outpatient (REF) | payer MEDICARE, SELFPAY | LOC: REG 14:09 | PROVIDERS: ATTENDING PHYSICIAN Internal Medicine Hematology & Oncology; FAMILY PHYSICIAN Family Medicine | DX: C90.00 Multiple myeloma not having achieved remission (principal); C90.01 Multiple myeloma in remission; G89.3 Neoplasm related pain (acute) (chronic); D80.0 Hereditary hypogammaglobulinemia; R58 Hemorrhage, not elsewhere classified; R79.1 Abnormal coagulation profile; R79.9 Abnormal finding of blood chemistry, unspecified; Z86.2 Personal history of diseases of the blood and blood-forming organs and certain disorders involving the immune mechanism | CPT/HCPCS: 36415; 83519 ==

== ENCOUNTER → 2024-09-08 11:32 | Outpatient (REF) | payer MEDICARE, SELFPAY ==
[2024-09-08 12:21] LABS: % Basophils 1.2 % (0-2); % Eosinophils 1.7 % (0-6); % Immature Granulocytes 0.3 % (0-0.5); % Monocytes 8.4 % (1.7-9.3); % Neutrophils 68.4 % (42.2-75.2); Absolute Basophils 0.1 10^3/uL (0-0.2); Absolute Eosinophils 0.1 10^3/uL (0-0.7); Absolute Lymphocytes 1.3 10^3/uL (1.2-3.4); Absolute Monocytes 0.5 10^3/uL (0.1-0.6); Absolute Neutrophils 4.4 10^3/uL (1.4-6.5); Hematocrit 37.5 % (37.0-47.0); Hemoglobin 12.9 g/dL (12.0-16.0); Mean Corp Hgb Conc. 34.4 g/dL (33.0-37.0); Mean Corpuscular Hgb 33.7 pg (27.0-31.0); Mean Corpuscular Volume 97.9 fL (81.0-99.0); Mean Platelet Volume 10.6 fL (7.4-10.4); Nucleated Red Blood Cells % 0 %; Platelet Count 302 10^3/uL (130-400); Red Blood Cell Count 3.83 10^6/uL (4.20-5.40); Red Cell Dist. Width 13.6 % (11.5-14.5); White Blood Cell Count 6.5 10^3/uL (4.8-10.8)
[2024-09-08 12:31] LABS: ALT (SGPT) 21 U/L (0-35); AST (SGOT) 25 U/L (14-36); Albumin 4.2 g/dl (3.5-5.0); Alkaline Phosphatase 77 U/L (38-126); Blood Urea Nitrogen 9 mg/dl (7-17); Calcium 10.5 mg/dl (8.4-10.2); Carbon Dioxide 23 mmol/L (22-30); Chloride 106 mmol/L (98-107); Glucose 149 mg/dl (70-99); Iron 69 ug/dl (37-170); Potassium 4.2 mmol/L (3.5-5.1); Sodium 139 mmol/L (135-145); Total Bilirubin 0.6 mg/dl (0.2-1.3); Total Protein 6.9 g/dl (6.3-8.2); eGFR > 60.00
[2024-09-08 12:40] LABS: Percent Saturation 22 % (20-50); Total Iron Binding Capacity 309 ug/dl (265-497)
[2024-09-08 13:06] LABS: Ferritin 46.1 ng/ml (11.1-264.0)
[2024-09-11 08:17] LABS: Beta-2-Microglobulin 1.7 mg/L (<=3.0)
== END ==
LOC: OIDL 11:32
PROVIDERS: ATTENDING PHYSICIAN Internal Medicine Hematology & Oncology
DX: C90.00 Multiple myeloma not having achieved remission (principal); C90.01 Multiple myeloma in remission; G89.3 Neoplasm related pain (acute) (chronic)
CPT/HCPCS: 80053; 82232; 82728; 82784; 83521; 83540; 83550; 84155; 84165; 85025; 86334

== ENCOUNTER → 2024-10-07 15:12 | Outpatient (REF) | payer MEDICARE, SELFPAY ==
[2024-10-07 10:59] LABS: % Basophils 1.3 % (0-2); % Eosinophils 2.7 % (0-6); % Lymphocytes 33.9 % (20.5-51.1); % Monocytes 9.5 % (1.7-9.3); % Neutrophils 52.6 % (42.2-75.2); Absolute Basophils 0.1 10^3/uL (0-0.2); Absolute Eosinophils 0.1 10^3/uL (0-0.7); Absolute Lymphocytes 1.5 10^3/uL (1.2-3.4); Absolute Monocytes 0.4 10^3/uL (0.1-0.6); Absolute Neutrophils 2.4 10^3/uL (1.4-6.5); Hematocrit 37.1 % (37.0-47.0); Hemoglobin 12.7 g/dL (12.0-16.0); Mean Corp Hgb Conc. 34.2 g/dL (33.0-37.0); Mean Corpuscular Volume 99.2 fL (81.0-99.0); Mean Platelet Volume 10.2 fL (7.4-10.4); Platelet Count 284 10^3/uL (130-400); Red Blood Cell Count 3.74 10^6/uL (4.20-5.40); Red Cell Dist. Width 13.5 % (11.5-14.5); White Blood Cell Count 4.5 10^3/uL (4.8-10.8)
[2024-10-07 11:47] LABS: ALT (SGPT) 20 U/L (0-35); AST (SGOT) 25 U/L (14-36); Albumin 4.4 g/dl (3.5-5.0); Alkaline Phosphatase 99 U/L (38-126); Blood Urea Nitrogen 28 mg/dl (7-17); Calcium 10.1 mg/dl (8.4-10.2); Carbon Dioxide 28 mmol/L (22-30); Chloride 109 mmol/L (98-107); Glucose 100 mg/dl (70-99); Sodium 140 mmol/L (135-145); Total Bilirubin 0.6 mg/dl (0.2-1.3); Total Protein 7.2 g/dl (6.3-8.2); eGFR 51.75
[2024-10-07 12:03] LABS: Vitamin D, 25-OH*** 48.7 ng/mL (30-80)
[2024-10-09 03:35] LABS: Beta-2-Microglobulin 1.7 mg/L (<=3.0)
== END ==
LOC: OIDL 15:12
PROVIDERS: ATTENDING PHYSICIAN Internal Medicine Hematology & Oncology
DX: C90.00 Multiple myeloma not having achieved remission (principal); C90.01 Multiple myeloma in remission; G89.3 Neoplasm related pain (acute) (chronic); D80.1 Nonfamilial hypogammaglobulinemia; R58 Hemorrhage, not elsewhere classified; R79.1 Abnormal coagulation profile; R79.9 Abnormal finding of blood chemistry, unspecified; Z86.2 Personal history of diseases of the blood and blood-forming organs and certain disorders involving the immune mechanism; E83.52 Hypercalcemia; R94.6 Abnormal results of thyroid function studies; E55.9 Vitamin D deficiency, unspecified
CPT/HCPCS: 80053; 82232; 82306; 82784; 83521; 84155; 84165; 85025; 86334

== ENCOUNTER → 2024-10-24 10:23 | Outpatient (REF) | payer MEDICARE, SELFPAY ==
[2024-10-24 11:59] LABS: % Basophils 1.9 % (0-2); % Eosinophils 3.1 % (0-6); % Immature Granulocytes 0.2 % (0-0.5); % Lymphocytes 27.6 % (20.5-51.1); % Neutrophils 57.2 % (42.2-75.2); Absolute Basophils 0.1 10^3/uL (0-0.2); Absolute Eosinophils 0.2 10^3/uL (0-0.7); Absolute Lymphocytes 1.3 10^3/uL (1.2-3.4); Absolute Monocytes 0.5 10^3/uL (0.1-0.6); Absolute Neutrophils 2.7 10^3/uL (1.4-6.5); Hematocrit 40.1 % (37.0-47.0); Hemoglobin 13.4 g/dL (12.0-16.0); Mean Corp Hgb Conc. 33.4 g/dL (33.0-37.0); Mean Corpuscular Volume 98.8 fL (81.0-99.0); Nucleated Red Blood Cells % 0 %; Platelet Count 294 10^3/uL (130-400); Red Blood Cell Count 4.06 10^6/uL (4.20-5.40); Red Cell Dist. Width 13.8 % (11.5-14.5); White Blood Cell Count 4.8 10^3/uL (4.8-10.8)
[2024-10-24 14:07] LABS: TSH Reflex To Free T4 0.87 uIU/ml (0.47-4.68)
[2024-10-24 14:51] LABS: ALT (SGPT) 22 U/L (0-35); AST (SGOT) 29 U/L (14-36); Albumin 4.5 g/dl (3.5-5.0); Alkaline Phosphatase 103 U/L (38-126); Blood Urea Nitrogen 19 mg/dl (7-17); Calcium 10.3 mg/dl (8.4-10.2); Carbon Dioxide 28 mmol/L (22-30); Chloride 107 mmol/L (98-107); Glucose 96 mg/dl (70-99); Potassium 4.9 mmol/L (3.5-5.1); Sodium 142 mmol/L (135-145); Total Bilirubin 0.7 mg/dl (0.2-1.3); Total Cholesterol 223 mg/dl (50-199); Total Protein 7.7 g/dl (6.3-8.2); Triglyceride 102 mg/dl (10-149); Very Low Density Lipoprotein 20 mg/dl (0-30); eGFR 51.75
[2024-10-24 15:22] LABS: HDL Cholesterol 116 mg/dl; LDL Cholesterol, Calculated 87 mg/dl
== END ==
LOC: REG 10:23
PROVIDERS: ATTENDING PHYSICIAN Family Medicine
DX: R79.89 Other specified abnormal findings of blood chemistry (principal); C90.01 Multiple myeloma in remission; E78.00 Pure hypercholesterolemia, unspecified; E83.52 Hypercalcemia; Z13.1 Encounter for screening for diabetes mellitus
CPT/HCPCS: 36415; 80053; 80061; 84443; 85025

== ENCOUNTER → 2024-11-03 14:00 | Outpatient (REF) | payer MEDICARE, SELFPAY ==
[2024-11-03 09:57] LABS: % Basophils 0.9 % (0-2); % Eosinophils 3.6 % (0-6); % Lymphocytes 31.3 % (20.5-51.1); % Monocytes 10.4 % (1.7-9.3); % Neutrophils 53.8 % (42.2-75.2); Absolute Eosinophils 0.2 10^3/uL (0-0.7); Absolute Lymphocytes 1.4 10^3/uL (1.2-3.4); Absolute Monocytes 0.5 10^3/uL (0.1-0.6); Absolute Neutrophils 2.4 10^3/uL (1.4-6.5); Hematocrit 38.9 % (37.0-47.0); Hemoglobin 12.9 g/dL (12.0-16.0); Mean Corp Hgb Conc. 33.2 g/dL (33.0-37.0); Mean Corpuscular Hgb 32.3 pg (27.0-31.0); Mean Corpuscular Volume 97.5 fL (81.0-99.0); Mean Platelet Volume 10.1 fL (7.4-10.4); Platelet Count 314 10^3/uL (130-400); Red Blood Cell Count 3.99 10^6/uL (4.20-5.40); Red Cell Dist. Width 13.4 % (11.5-14.5); White Blood Cell Count 4.5 10^3/uL (4.8-10.8)
[2024-11-03 11:04] LABS: ALT (SGPT) 18 U/L (0-35); AST (SGOT) 27 U/L (14-36); Albumin 4.4 g/dl (3.5-5.0); Alkaline Phosphatase 88 U/L (38-126); Blood Urea Nitrogen 17 mg/dl (7-17); Carbon Dioxide 26 mmol/L (22-30); Chloride 110 mmol/L (98-107); Glucose 96 mg/dl (70-99); Potassium 4.5 mmol/L (3.5-5.1); Sodium 142 mmol/L (135-145); Total Bilirubin 0.6 mg/dl (0.2-1.3); Total Protein 7.3 g/dl (6.3-8.2); eGFR > 60.00
[2024-11-06 09:41] LABS: Beta-2-Microglobulin 1.7 mg/L (<=3.0)
== END ==
LOC: OIDL 14:00
PROVIDERS: ATTENDING PHYSICIAN Internal Medicine Hematology & Oncology
DX: C90.00 Multiple myeloma not having achieved remission (principal); C90.01 Multiple myeloma in remission; G89.3 Neoplasm related pain (acute) (chronic); D80.1 Nonfamilial hypogammaglobulinemia; R58 Hemorrhage, not elsewhere classified; R79.1 Abnormal coagulation profile; R79.9 Abnormal finding of blood chemistry, unspecified; Z86.2 Personal history of diseases of the blood and blood-forming organs and certain disorders involving the immune mechanism; E83.52 Hypercalcemia; R94.6 Abnormal results of thyroid function studies; E55.9 Vitamin D deficiency, unspecified
CPT/HCPCS: 80053; 82232; 82784; 83521; 84155; 84165; 85025; 86334

== ENCOUNTER → 2024-11-30 17:08 | Outpatient (REF) | payer MEDICARE, SELFPAY | LOC: RAD 17:08 | PROVIDERS: ATTENDING PHYSICIAN Family Medicine | DX: M54.50 Low back pain, unspecified (principal); M54.6 Pain in thoracic spine | CPT/HCPCS: 72072; 72110 ==

== ENCOUNTER → 2024-12-01 11:07 | Outpatient (REF) | payer MEDICARE, SELFPAY ==
[2024-12-01 10:01] LABS: Hematocrit 38.4 % (37.0-47.0); Hemoglobin 12.6 g/dL (12.0-16.0); Mean Corp Hgb Conc. 32.8 g/dL (33.0-37.0); Mean Corpuscular Volume 98.2 fL (81.0-99.0); Platelet Count 315 10^3/uL (130-400); Red Cell Dist. Width 13.2 % (11.5-14.5)
[2024-12-01 10:43] LABS: ALT (SGPT) 23 U/L (0-35); AST (SGOT) 31 U/L (14-36); Albumin 4.4 g/dl (3.5-5.0); Alkaline Phosphatase 92 U/L (38-126); Blood Urea Nitrogen 16 mg/dl (7-17); Calcium 9.9 mg/dl (8.4-10.2); Carbon Dioxide 29 mmol/L (22-30); Chloride 106 mmol/L (98-107); Glucose 99 mg/dl (70-99); Potassium 4.6 mmol/L (3.5-5.1); Sodium 140 mmol/L (135-145); Total Protein 7.3 g/dl (6.3-8.2); eGFR > 60.00
== END ==
LOC: OIDL 11:07
PROVIDERS: ATTENDING PHYSICIAN Internal Medicine Hematology & Oncology
DX: C90.00 Multiple myeloma not having achieved remission (principal); C90.01 Multiple myeloma in remission; G89.3 Neoplasm related pain (acute) (chronic); D80.1 Nonfamilial hypogammaglobulinemia; R58 Hemorrhage, not elsewhere classified; R79.1 Abnormal coagulation profile; R79.9 Abnormal finding of blood chemistry, unspecified; Z86.2 Personal history of diseases of the blood and blood-forming organs and certain disorders involving the immune mechanism; E83.52 Hypercalcemia; R94.6 Abnormal results of thyroid function studies; E55.9 Vitamin D deficiency, unspecified
CPT/HCPCS: 80053; 82232; 82784; 83521; 84155; 84165; 85025; 86334

== ENCOUNTER → 2024-12-26 12:14 | Outpatient (REF) | payer MEDICARE, SELFPAY ==
[2024-12-26 12:54] LABS: Hematocrit 42.1 % (37.0-47.0); Hemoglobin 14.0 g/dL (12.0-16.0); Mean Corp Hgb Conc. 33.3 g/dL (33.0-37.0); Mean Corpuscular Volume 95.9 fL (81.0-99.0); Nucleated Red Blood Cells % 0 %; Platelet Count 313 10^3/uL (130-400); Red Cell Dist. Width 12.8 % (11.5-14.5)
[2024-12-26 13:31] LABS: ALT (SGPT) 20 U/L (0-35); AST (SGOT) 28 U/L (14-36); Albumin 4.7 g/dl (3.5-5.0); Alkaline Phosphatase 103 U/L (38-126); Blood Urea Nitrogen 15 mg/dl (7-17); Calcium 10.6 mg/dl (8.4-10.2); Carbon Dioxide 28 mmol/L (22-30); Chloride 101 mmol/L (98-107); Glucose 119 mg/dl (70-99); Potassium 4.9 mmol/L (3.5-5.1); Sodium 137 mmol/L (135-145); Total Protein 8.0 g/dl (6.3-8.2); eGFR 58.02
[2024-12-26 13:38] LABS: C-Reactive Protein < 5.00 mg/L (0.0-10.00)
[2024-12-26 13:48] LABS: Vitamin D, 25-OH*** 59.7 ng/mL (30-80)
[2024-12-26 14:38] LABS: Folate 16.2 ng/ml (2.76-20); Vitamin B12 658 pg/ml (239-931)
== END ==
LOC: REG 12:14
PROVIDERS: ATTENDING PHYSICIAN Internal Medicine; FAMILY PHYSICIAN Family Medicine
DX: C90.01 Multiple myeloma in remission (principal); R53.1 Weakness; R53.83 Other fatigue; R20.0 Anesthesia of skin; R20.2 Paresthesia of skin; E55.9 Vitamin D deficiency, unspecified
CPT/HCPCS: 36415; 80053; 82306; 82607; 82746; 84443; 85025; 85652; 86140; 86618

== ENCOUNTER 2024-12-29 09:58 | Emergency (ER) | payer MEDICARE, SELFPAY ==
[2024-12-29 10:00] VITALS: BP 144/96
--- NOTE | 2024-12-29 11:05 | ED.GENMED ---
History of Present Illness
General
Chief Complaint: Weakness
Source: patient
Time Seen by Provider: 12/29/24 10:54
History of Present Illness
History of Present Illness:
79-year-old female presents to the emergency room complaining of profound weakness, paresthesias in her feet, muscle weakness diffusely. Symptoms began about a week ago. Patient is typically a very active individual. She relays the fact she walks
10,000 steps a day, kayaks in the ocean and does other similar things on a regular basis. The fact that she is profoundly weak is a sudden and disturbing event. She states she slept for about 10 hours over the past couple nights. No known fever.
Patient has some mild weight gain. Patient denies any nausea vomiting or diarrhea. She denies constipation. Patient has history of multiple myeloma and is concerned she might be having a recurrence. She was actually sent to the emergency room
today by her oncologist. The patient had blood work on Thursday by her primary care doctor which I reviewed. She had a mild elevation of her calcium with a normal albumin at that time.
Past History
Past History
ED Past Medical History: Other (Diverticulitis, IBS) and Other (Multiple myeloma)
ED Past Surgical History: Bowel resection (Sigmoid resection), Orthopedic and Other
Patient has exhibited threatening behavior?: No
Social History
Tobacco: Non-smoker
Alcohol: Occasional
Drug: None
Personal:
Living: alone
Employment: Retired
Family History
Family History: Other (Mother with coronary artery disease sister with breast cancer)
Phy Exam
Physical Exam
Physical Exam:
General: Awake, Alert, Oriented X3. No acute distress.
Vitals: unremarkable
Head: Atraumatic
Eyes: Pupils equal, EOMI
Throat: Airway intact, no exudates, mildly dry
Neck: Trachea midline
Lungs: Clear and equal b/l
Heart: Regular rate, no murmurs
Abd: Soft, Nontender, No pulsatile mass
Neuro: Cranial nerves intact, muscle strength equal bilaterally, cerebellar exam normal, reflexes intact tending towards hyperreflexia
Skin: Warm, dry, no rash
Extremities: pulses equal b/l, no edema
Course
Orders/Labs/Results
Orders:
Orders
12/29/24 11:04
0.9% Sodium Chloride 1000 ml [Nss] 1,000 ml IV BOLUS
12/29/24 11:05
CT Head W/o Iv Contrast Urgent
Comment:
Reason For Exam: left facial paresthesia
12/29/24 11:08
Electrocardiogram (*1) Urgent
Reason for Study: Fatigue / Weakness
EKG- Treatment ONCE
12/29/24 11:34
Complete Blood Count/With Diff Urgent
12/29/24 12:27
Comprehensive Metabolic Panel Urgent
Magnesium Urgent
Phosphorus Urgent
TSH Reflex To Free T4 Urgent
12/29/24 14:27
Urinalysis Reflex To Culture Urgent
Date Specimen was Collected: 12/29/24
Time Specimen was Collected: 14:00
12/29/24 16:04
ZOHRA Urine [ZOHRA w/Free Light Chains, Urine] [S] Urgent
Protein Electrophoresis Reflex [S] Urgent
Serum Free Light Chains [[place]/Lambda FLC Quant] [S] Urgent
Abnormal Lab Results
12/29/24 12/29/24
11:34 12:27
MCH 32.4 H pg
(27.0-31.0)
MPV 10.6 H fL
(7.4-10.4)
Monocytes % 9.5 H %
(1.7-9.3)
Calcium 10.3 H mg/dl
(8.4-10.2)
12/29/24 11:34
12/29/24 12:27
Vital Signs
Initial and Last Documented VS:
Initial Vital Signs
Temp Pulse Resp BP Pulse Ox
97.6 F 60 16 144/96 100
12/29/24 10:00 12/29/24 10:00 12/29/24 10:00 12/29/24 10:00 12/29/24 10:00
Last Documented Vital Signs
Temp Pulse Resp BP Pulse Ox
97.6 F 69 16 163/48 98
12/29/24 10:00 12/29/24 16:15 12/29/24 16:15 12/29/24 16:00 12/29/24 12:05
MDM/Problems Addressed
Differential Diagnosis Includes:
Hypercalcemia, hypothyroidism, viral illness, urinary tract infection
MDM/Problems Addressed:
Patient presents with generalized weakness and paresthesias. Workup is unremarkable. Discussed with Dr. Ziegler. She requested we send some specific labs for multi myeloma. Will have patient follow-up with her in the next week or so.
*Pulse Oximetry
SaO2: 100
Oxygen Mode of Delivery: Room air
Patient hypoxic: no
*Critical Care Note
Total Time (30-74mins, 75-104mins- exclusive of procedures): Not Applicable
ED Attending Note
-
Portions of this chart may have been created with voice recognition software.� Occasional wrong word or��sound alike� substitutions may have occurred due to the inherent limitations of voice recognition software.
Discharge Plan
Departure
Patient Disposition: Home (Routine Discharge)
Date of Disposition: 12/29/24
Time of Disposition: 16:29
Patient with high blood pressure during this ER visit?: Yes
Condition: Good
Discharge Problem:
Bilateral leg weakness
Instructions: Generalized Weakness (DC)
Prescriptions:
No Action
Refresh Classic (PF) 10 DROPS dropperette
1 drops BOTH EYES DAILYPRN PRN (Reason: dry eyes)
famotidine 40 MG tablet
40 mg PO DAILY
milk thistle 500 MG capsule
500 mg PO DAILY
calcium carbonate [Oyster Shell Calcium 500] 500 MG tablet
1,500 mg PO
ascorbic acid (vitamin C) [Vitamin C] 500 MG tablet
1,000 mg PO DAILY
gabapentin 300 MG capsule
400 mg PO HS
cranberry fruit 1,000 MG capsule
1,000 mg PO DAILY
cholecalciferol (vitamin D3) 1,000 UNITS tablet
5,000 units PO DAILY
multivitamin with folic acid [Tab-A-Jacquie] 1 TABLET tablet
1 tab PO DAILY
alprazolam 0.25 MG tablet
0.25 mg PO DAILYPRN PRN (Reason: anxiety)
Patient Comments:
09/09/21: last filled 06/19/21, [facility]
polyethylene glycol 3350 17 GRAMS powder in packet
17 grams PO DAILYPRN PRN (Reason: constipation)
cetirizine [Zyrtec] 10 mg Tablet
10 mg PO HS
montelukast [Singulair] 10 mg Tablet
10 mg PO HS
Referrals:
Chalino Garnica Jr., DO [Family Provider, Internal Medicine]
Activity Restrictions/Additional Instructions:
Call Dr. Ziegler's office to arrange a follow-up appointment. We have sent the test she requested so she will have those results hopefully in a few days. Please return to the emergency room you feel like your symptoms are worsening.
Interventions
Interventions:
*Risk Screen - Suicide Last Done: 12/29/24 12:08
*General Assessment Last Done: 12/29/24 12:07
*Neglect/Abuse Screening Last Done: 12/29/24 12:08
*ED- Fall Risk Assessment Last Done: 12/29/24 12:07
ED- Cardiac Assessment Last Done: 12/29/24 12:05
ED- Neurological Assessment Last Done: 12/29/24 12:05
ED- Pulmonary Assessment Last Done: 12/29/24 12:05
Discharge Date and Time
Print Language: LAO
[2024-12-29 11:17] VITALS: BMI 23.7
[2024-12-29 11:41] LABS: Hematocrit 39.6 % (37.0-47.0); Hemoglobin 13.6 g/dL (12.0-16.0); Mean Corp Hgb Conc. 34.3 g/dL (33.0-37.0); Mean Corpuscular Volume 94.3 fL (81.0-99.0); Nucleated Red Blood Cells % 0 %; Platelet Count 352 10^3/uL (130-400); Red Cell Dist. Width 12.9 % (11.5-14.5)
[2024-12-29] MEDS: NSS 1000 IV (11:42)
[2024-12-29 13:03] LABS: ALT (SGPT) 19 U/L (0-35); AST (SGOT) 26 U/L (14-36); Albumin 4.4 g/dl (3.5-5.0); Alkaline Phosphatase 106 U/L (38-126); Blood Urea Nitrogen 14 mg/dl (7-17); Calcium 10.3 mg/dl (8.4-10.2); Carbon Dioxide 26 mmol/L (22-30); Chloride 106 mmol/L (98-107); Estimated Creatinine Clearance 62 ml/min; Glucose 91 mg/dl (70-99); Magnesium 2.1 mg/dl (1.6-2.3); Potassium 4.3 mmol/L (3.5-5.1); Sodium 139 mmol/L (135-145); Total Protein 7.6 g/dl (6.3-8.2); eGFR > 60.00
[2024-12-29 14:43] LABS: Urine Character Clear (Clear)
[2024-12-29 15:00] VITALS: BP 167/65
[2024-12-29 16:00] VITALS: BP 163/48
--- NOTE | 2024-12-29 17:50 | EDRN ---
Pt came out to nurses station requesting to speak with her nurse or her doctor. Pt states 'I am confused why I was kept here all day and was I tested for a virus?' This RN explained to pt she has basic blood work and a urine test done. I explained
what the blood tests were for and that Dr. Charlton should've gone over them with her along with the CT results. Pt states 'Still why was I here all day starving and not knowing what I was tested for?' I explained to pt that Dr. Charlton explained
the plan of care with her as I was there and heard him explain it all to her. Pt states 'what about my blood work that my multiple myeloma doctor ordered?' I explained to pt that I had to speak with the lab regarding those labs due to them being
special types of lab work not normally done in the ER and since she was a hard stick I wanted to see if we could use the labs down there already. Pt became increasingly agitated and demanded that 'Dr. Charlton did not explain anything to me or tell
me why I was here all day! My doctor ordered those labs not Dr. Charlton, he didn't do anything for me'. I informed pt that Dr. Charlton spoke with her doctor and ordered the specific testing she wanted in the ER for her. Pt states 'I have no idea
why nothing was found I am sick!' I explained to pt that the ER tests for emergent findings and that Dr. Charlton ordered what he deemed necessary based off of his evaluation, symptoms, vitals, blood work and scan results. This RN explained to pt
again that Dr. Charlton went over all of her labs and scan results here with her. wealth management director was called to assist due to this RN feeling uncomfortable with the increasing agitation.
== END 2024-12-29 18:00 | disposition home or self-care (01) ==
LOC: EMR 09:58
PROVIDERS: EMERGENCY PHYSICIAN Emergency Medicine; FAMILY PHYSICIAN Family Medicine
DX: R53.1 Weakness (principal); R20.2 Paresthesia of skin; Z85.79 Personal history of other malignant neoplasms of lymphoid, hematopoietic and related tissues
CPT/HCPCS: 96360; 99284; 96361; 70450; 80053; 81003; 83520; 83521; 83735; 84100; 84155; 84156; 84165; 84443; 85025; 86335; 93005

== ENCOUNTER → 2025-01-05 14:47 | Outpatient (REF) | payer MEDICARE, SELFPAY | LOC: REG 14:47 | PROVIDERS: ATTENDING PHYSICIAN Family Medicine | DX: M25.50 Pain in unspecified joint (principal) | CPT/HCPCS: 36415; 86618 ==

== ENCOUNTER → 2025-01-16 06:44 | Outpatient (REF) | payer MEDICARE, SELFPAY ==
[2025-01-16] VITALS (10 sets, daily range): BP systolic 54–197; BP diastolic 70–91
[2025-01-16 07:18] LABS: Hematocrit 41.2 % (37.0-47.0); Hemoglobin 13.8 g/dL (12.0-16.0); Mean Corp Hgb Conc. 33.5 g/dL (33.0-37.0); Mean Corpuscular Volume 95.4 fL (81.0-99.0); Nucleated Red Blood Cells % 0 %; Platelet Count 346 10^3/uL (130-400); Red Cell Dist. Width 13.0 % (11.5-14.5)
[2025-01-16 07:35] LABS: INR 0.94; PT 12.9 Sec (11.4-14.6)
[2025-01-16] MEDS: ATIVAN 0.5 MG PO (07:45)
== END ==
LOC: RADI 06:44
PROVIDERS: ATTENDING PHYSICIAN Internal Medicine Hematology & Oncology; FAMILY PHYSICIAN Family Medicine
DX: C90.00 Multiple myeloma not having achieved remission (principal)
CPT/HCPCS: 36415; 38222; 77012; 85025; 85610; 88305; 88311; 88312; 88313

== ENCOUNTER → 2025-02-09 12:13 | Outpatient (REF) | payer MEDICARE, SELFPAY ==
[2025-02-09 12:22] LABS: Hematocrit 38.9 % (37.0-47.0); Hemoglobin 12.7 g/dL (12.0-16.0); Mean Corp Hgb Conc. 32.6 g/dL (33.0-37.0); Mean Corpuscular Volume 98.2 fL (81.0-99.0); Platelet Count 315 10^3/uL (130-400); Red Cell Dist. Width 14.4 % (11.5-14.5)
[2025-02-09 13:07] LABS: ALT (SGPT) 25 U/L (0-35); AST (SGOT) 29 U/L (14-36); Albumin 4.6 g/dl (3.5-5.0); Alkaline Phosphatase 125 U/L (38-126); Blood Urea Nitrogen 12 mg/dl (7-17); Calcium 9.8 mg/dl (8.4-10.2); Carbon Dioxide 27 mmol/L (22-30); Chloride 105 mmol/L (98-107); Glucose 133 mg/dl (70-99); Potassium 4.4 mmol/L (3.5-5.1); Sodium 139 mmol/L (135-145); Total Protein 7.2 g/dl (6.3-8.2); eGFR > 60.00
== END ==
LOC: OIDL 12:13
PROVIDERS: ATTENDING PHYSICIAN Internal Medicine Hematology & Oncology
DX: C90.00 Multiple myeloma not having achieved remission (principal); C90.01 Multiple myeloma in remission; G89.3 Neoplasm related pain (acute) (chronic); D80.1 Nonfamilial hypogammaglobulinemia; R58 Hemorrhage, not elsewhere classified; R79.1 Abnormal coagulation profile; R79.9 Abnormal finding of blood chemistry, unspecified; Z86.2 Personal history of diseases of the blood and blood-forming organs and certain disorders involving the immune mechanism; E83.52 Hypercalcemia; R94.6 Abnormal results of thyroid function studies; E55.9 Vitamin D deficiency, unspecified
CPT/HCPCS: 80053; 82232; 82784; 83521; 84155; 84165; 85025; 86334

== ENCOUNTER → 2025-03-09 09:56 | Outpatient (REF) | payer MEDICARE, SELFPAY ==
[2025-03-09 10:32] LABS: ALT (SGPT) 23 U/L (0-35); AST (SGOT) 32 U/L (14-36); Albumin 4.5 g/dl (3.5-5.0); Alkaline Phosphatase 118 U/L (38-126); Blood Urea Nitrogen 16 mg/dl (7-17); Calcium 10.4 mg/dl (8.4-10.2); Carbon Dioxide 25 mmol/L (22-30); Chloride 105 mmol/L (98-107); Glucose 98 mg/dl (70-99); Potassium 4.6 mmol/L (3.5-5.1); Sodium 137 mmol/L (135-145); Total Protein 7.7 g/dl (6.3-8.2); eGFR > 60.00
[2025-03-09 10:45] LABS: Hematocrit 40.2 % (37.0-47.0); Hemoglobin 13.2 g/dL (12.0-16.0); Mean Corp Hgb Conc. 32.8 g/dL (33.0-37.0); Mean Corpuscular Volume 97.3 fL (81.0-99.0); Platelet Count 340 10^3/uL (130-400); Red Cell Dist. Width 14.2 % (11.5-14.5)
== END ==
LOC: CLAB 09:56
PROVIDERS: ATTENDING PHYSICIAN Internal Medicine Hematology & Oncology
DX: C90.00 Multiple myeloma not having achieved remission (principal); C90.01 Multiple myeloma in remission; G89.3 Neoplasm related pain (acute) (chronic); D80.1 Nonfamilial hypogammaglobulinemia; R58 Hemorrhage, not elsewhere classified; R79.1 Abnormal coagulation profile; R79.9 Abnormal finding of blood chemistry, unspecified; Z86.2 Personal history of diseases of the blood and blood-forming organs and certain disorders involving the immune mechanism; E83.52 Hypercalcemia; R94.6 Abnormal results of thyroid function studies; E55.9 Vitamin D deficiency, unspecified
CPT/HCPCS: 80053; 82232; 82784; 83521; 84155; 84165; 85025; 86334